=== PATIENT | female | born 1960 | race Caucasian/White ===

== ENCOUNTER → 2017-01-25 | Outpatient (CLI) | payer MEDICARE ==
[~2017-01-25] MED LIST: 1-ME1LIQ PO; ALPR1TAB3 PO; AMLO10TA2 PO; ASPI-110 PO; ATEN-102 PO; ATEN50TA PO; CALC600T25 PO; COMBAER INH; DOXY100T PO; FLEX10TA PO; FLUO1TAB17 PO; FORM20NE INH; HYDR-3533 PO; IPRA17I INH; IPRASOL INH; LAMO100T PO; MONT10TA4 PO; OXYGENTANK NAS.CANULA; PANT40TA3 PO; PRED10 PO; PRIM0.224 INH; QUET50XR PO; ROSU1TAB6 PO; TRIH2 PO; VENTAER INH; XANA1TAB6 PO
[2017-01-25 13:17] LABS: BLOOD GAS BASE EXCESS 2.2 mmol/L (-2-2); BLOOD GAS CARBOXYHEMOGLOBIN 4.8 % (0-4); BLOOD GAS HCO3 26 mmol/L (22-26); BLOOD GAS METHEMOGLOBIN 0.9 % (0-2); BLOOD GAS O2 HGB SATURATION 91 % (90-100); BLOOD GAS OXYGEN CONTENT 17.6 Vol % (12.0-20.0); BLOOD GAS PCO2 41 mmHg (38-42); BLOOD GAS PO2 85 mmHg (61-120); BLOOD GAS TOTAL HGB 13.7 G/DL (12.0-16.0); TEMP CORR TO 98.6
[2017-01-25 13:18] LABS: CRITICAL VALUE NO; DRAW SITE RR1; FIO2 21 %; NUMBER OF ARTERIAL PUNCTURES 1; STAT NO; ULNAR PULSE PRESENT
--- NOTE | 2017-02-11 10:33 | RSPPFT ---
DATE OF PROCEDURE: 01/25/17 COMMENTS: Spirometry with FVC of 1.4 predicted 3.6, FEV1 of 0.6 predicted 2.7, FEV1/FVC ratio at 44% predicted 74%. Post-bronchodilator FVC increases to 1.8 and FEV1 to 0.7. IMPRESSION: On the basis of the above, patient's flow volume loop is not satisfactory and she was unable to complete the DLCO and lung volumes. Patient has a severe restrictive lung defect with responsiveness to acutely inhaled bronchodilator.
== END ==
LOC: HRSP 11:23
PROVIDERS: ATTEND Internal Medicine Pulmonary Disease
DX: J44.9 Chronic obstructive pulmonary disease, unspecified (principal)
CPT/HCPCS: 36600; 82805

== ENCOUNTER 2017-03-07 16:02 | Inpatient (IN) | payer MEDICARE ==
[~2017-03-07] VITALS: Ht 172.7 cm; Wt 61.5 kg
[2017-03-14] MEDS ORDERED: CALC600T25 PO (13:48)
[2017-03-14] MEDS ORDERED: ATEN50TA PO (13:48)
[2017-03-14] MEDS ORDERED: QUET50XR PO (13:48)
[2017-03-14] MEDS ORDERED: ALPR1TAB3 PO (13:48)
[2017-03-14] MEDS ORDERED: ROSU1TAB6 PO (13:48)
[2017-03-14] MEDS ORDERED: MONT10TA4 PO (13:48)
[2017-03-14] MEDS ORDERED: ASPI-110 PO (13:48)
[2017-03-14] MEDS ORDERED: IPRA17I INH (13:48)
[2017-03-14] MEDS ORDERED: IPRASOL INH (13:48)
[2017-03-14] MEDS ORDERED: FORM20NE INH (13:48)
[2017-03-14] MEDS ORDERED: FLUO1TAB17 PO (13:48)
[2017-03-14] MEDS ORDERED: LAMO100T PO (13:48)
[2017-03-14] MEDS ORDERED: VENTAER INH (13:48)
[2017-03-14] MEDS ORDERED: TRIH2 PO (13:48)
[2017-03-14] MEDS ORDERED: AMLO10TA2 PO (13:48)
[2017-03-14] MEDS ORDERED: DOXY100T PO (13:49)
[2017-03-14] MEDS ORDERED: PRED10 PO (13:53)
[2017-03-14] MEDS ORDERED: PANT40TA3 PO (14:06)
[2017-03-18 05:40] VITALS: BP 142/82; PULSE 70; RESP 20; TEMP 98; O2SAT 97
[2017-03-18] MEDS ORDERED: POVIDONE IODINE 5% (ANTISEPSIS KIT) 4 APPLICATIONS EACH NARE PRN (06:00)
[2017-03-18] MEDS ORDERED: SODIUM CHLORID 0.9% 500 ML IV PRN (06:00)
[2017-03-18] MEDS ORDERED: CLINDAMYCIN 900/NS 100 ML IV SCH ×2 (06:00)
[2017-03-18] MEDS ORDERED: CHLORHEXIDINE GLUCONATE 2 % 1 PACK (2 CLOTHS) TOPICAL PRN (06:00)
[2017-03-18] MEDS ORDERED: LACTATED RINGER'S 1000 ML IV PRN (06:00)
[2017-03-18] MEDS ORDERED: METOPROLOL TARTRATE 25 MG TAB PO PRN (06:00)
[2017-03-18] MEDS ORDERED: INSULIN HUMAN REGULAR 1,000 UNITS/10 ML VIAL SQ PRN (06:00)
[2017-03-18] MEDS ORDERED: SODIUM CHLORIDE 0.9% INJ 100 ML ONE (06:13)
[2017-03-18] MEDS ORDERED: ACETAMINOPHEN 1000 MG/100 ML VIAL IV ONE (06:44)
[2017-03-18] MEDS ORDERED: SUGAMMADEX SODIUM 200 MG/2 ML VIAL IV PUSH ONE ×2 (06:44)
[2017-03-18] MEDS ORDERED: ARTIFICIAL TEARS OPTH OINT 3.5 APPLIC/3.5 GM TUBO ONE (06:44)
[2017-03-18 06:48] LABS: INTERNATIONAL NORMALIZED RATIO 0.9 RATIO
[2017-03-18] MEDS ORDERED: FAMOTIDINE 20 MG/2 ML VIAL ONE (07:09)
[2017-03-18] MEDS ORDERED: MIDAZOLAM HCL 2 MG/2 ML VIAL ONE (07:09)
[2017-03-18] MEDS ORDERED: DEXAMETHASONE SOD PHOS 4 MG/ML VIAL ONE (07:10)
[2017-03-18] MEDS ORDERED: NORMOSOL R INJ 1,000 ML IV ONE (12:00)
[2017-03-18] MEDS ORDERED: PHENYLEPH/NS 1000 MCG/10 ML SYR IV ONE (12:00)
[2017-03-18] MEDS ORDERED: PHENYLEPHRINE HCL 10 MG/ML VIAL IV ONE (12:00)
[2017-03-18] MEDS: ACETAMINOPHEN 1000 MG/100 ML VIAL IV SCH ×3 (12:00→23:02)
[2017-03-18] MEDS ORDERED: LACTATED RINGER'S 1000 ML INJ 1,000 ML IV ONE (12:00)
[2017-03-18] MEDS ORDERED: PROPOFOL 200 MG/20 ML AMP IV ONE (12:00)
[2017-03-18] MEDS ORDERED: ONDANSETRON HCL 4 MG/2 ML VIAL IV PUSH ONE (12:00)
[2017-03-18] MEDS: SODIUM CHLOR 0.9% 1000 ML INJ 1,000 ML IV SCH ×2 (12:15→20:59)
[2017-03-18] MEDS ORDERED: traMADol HCL 50 MG TAB PO PRN ×2 (12:15)
[2017-03-18] MEDS ORDERED: fentaNYL CITRATE 250 MCG/5 ML AMP ONE (12:56)
[2017-03-18] MEDS: PANTOPRAZOLE SODIUM 40 MG VIAL IV PUSH SCH (13:00)
[2017-03-18] MEDS ORDERED: DO NOT ADM ANY ANTICOAGULANT DRUGS PRN (13:00)
[2017-03-18 13:13] LABS: AUTOMATED NEUTROPHIL # 8.9 TH/MM3 (1.8-7.7); BASOPHIL % 0.3 % (0.0-2.0); HEMATOCRIT 39.3 % (35.0-46.0); HEMO FLAGS DIFF FINAL; LYMPH % 4.7 % (9.0-44.0); LYMPHOCYTE # 0.4 TH/MM3 (1.0-4.8); MEAN CELL VOLUME 88.5 FL (80.0-100.0); MEAN CORPUSCULAR HEMOGLOBIN 28.3 PG (27.0-34.0); MONO % 1.6 % (0.0-8.0); NEUT % 93.4 % (16.0-70.0); PLATELET COUNT 213 TH/MM3 (150-450); RED BLOOD COUNT 4.44 MIL/MM3 (4.00-5.30); WHITE BLOOD COUNT 9.5 TH/MM3 (4.0-11.0)
[2017-03-18] MEDS ORDERED: *morphine SULFATE 8 MG/ML PERIprocedure ONLY ONE (13:30)
[2017-03-18 13:31] LABS: BICARBONATE 24.7 MEQ/L (21.0-32.0); POTASSIUM 3.7 MEQ/L (3.5-5.1)
[2017-03-18] MEDS: CLINDAMYCIN INJ 900 MG in SODIUM CHLORIDE 0.9% INJ 100 ML IV SCH ×2 (13:39→21:00)
[2017-03-18] MEDS: MORPHINE SULFATE 8 MG/ML INJ IV PUSH PRN ×2 (17:16→21:00)
[2017-03-18 18:00] VITALS: BP 106/63; PULSE 89; RESP 14; TEMP 95.7; O2SAT 91
[2017-03-18 20:00] VITALS: BP 127/89; PULSE 93; RESP 19; TEMP 96; O2SAT 98
[2017-03-18] MEDS: DOCUSATE SODIUM 100 MG CAP PO SCH (20:42)
--- NOTE | 2017-03-18 22:41 | EKG ---
Date Performed: 03/18/2017 Time Performed: 06:28:59 PTAGE: 56 years EKG: Sinus rhythm NORMAL ECG NO PREVIOUS TRACING Compared to the previous tracing sinus bradycardia is no longer prese nt DOCTOR: Ross Aguilar Interpretating Date/Time 03/18/2017 22:40:30
[2017-03-19] VITALS: BP 106/57; PULSE 63; RESP 19; TEMP 96; O2SAT 92
[2017-03-19] MEDS: CLINDAMYCIN INJ 900 MG in SODIUM CHLORIDE 0.9% INJ 100 ML IV SCH ×3 (03:46→21:16)
[2017-03-19 04:00] VITALS: BP 97/60; PULSE 78; RESP 19; TEMP 98.3; O2SAT 93
[2017-03-19] MEDS: MORPHINE SULFATE 8 MG/ML INJ IV PUSH PRN ×3 (06:06→21:21)
[2017-03-19] MEDS: ACETAMINOPHEN 1000 MG/100 ML VIAL IV SCH ×4 (06:06→23:19)
[2017-03-19] MEDS: ONDANSETRON HCL 4 MG/2 ML VIAL IV PUSH PRN ×3 (06:12→21:20)
[2017-03-19 06:29] LABS: BICARBONATE 30.7 MEQ/L (21.0-32.0); POTASSIUM 4.6 MEQ/L (3.5-5.1)
[2017-03-19 08:00] VITALS: BP 121/57; PULSE 78; RESP 17; TEMP 97.2; O2SAT 92
[2017-03-19] MEDS: SODIUM CHLOR 0.9% 1000 ML INJ 1,000 ML IV SCH ×3 (08:15→23:19)
[2017-03-19] MEDS: DOCUSATE SODIUM 100 MG CAP PO SCH ×2 (08:57→21:15)
--- NOTE | 2017-03-19 11:04 | MP ---
cc: SARI FIGUEROA MD DATE OF SURGERY: 03/18/2017 PREOPERATIVE DIAGNOSIS Right upper tract urothelial cell carcinoma. POSTOPERATIVE DIAGNOSIS Right upper tract urothelial cell carcinoma. PROCEDURE PERFORMED Robotic-assisted laparoscopic right nephroureterectomy with bladder cuff. SURGEON Hernando ANESTHESIA General. COMPLICATIONS None. PREOPERATIVE ANTIBIOTICS Clindamycin 600 mg IV. DRAINS 1. 11-Vietnamese LORETTA drain to bulb suction. 2. 20-Vietnamese three-way Grove catheter. ESTIMATED BLOOD LOSS Less than 50 mL. FLUIDS Two liters crystalloids. SPECIMENS Right kidney and ureter for permanent. DISPOSITION Stable to Recovery. INDICATIONS The patient is a 56-year-old female who was found to have a right upper pole renal mass. The patient underwent cystoscopy, ureteroscopy and biopsy by Dr. Grubbs, and was confirmed be low grade TCC. Treatment options were discussed including observation versus endo ablation versus an open nephroureterectomy versus laparoscopic nephroureterectomy. The advantages, disadvantages and potential side effects of each one were discussed including the need for surveillance of her bladder in the future as well as risk of renal failure and dialysis. She elected to proceed with robotic-assisted laparoscopic right nephroureterectomy. After the risks, benefits and alternatives were explained the patient elected to proceed and informed consent was obtained. DETAILS OF PROCEDURE The patient was properly identified, brought back to the operative room and laid supine on the operating table. A proper timeout was performed under the direction of the anesthesiology. The patient was intubated and induced under a general aesthetic. Preoperative antibiotics in the form of clindamycin 600 mg IV were given within one hour start of the procedure. The patient was then placed in a left lateral decubitus position with the right side up. All pressure points were padded. She was then prepped and draped in normal sterile surgical fashion. A stab incision was made just superior and lateral to her umbilicus. A Veress needle was then used to gain entrance into the abdominal cavity. Pneumoperitoneum was then achieved. Under direct visualization I then placed a 12 mm robotic camera port. The abdominal cavity was inspected. There was no evidence of any intra-abdominal injury. The remaining ports were then placed under direct visualization including two 8 mm robotic working ports which were triangulated off of the camera port. A 5 mm port was used for liver retraction superior to the umbilicus as well as a 12 mm coding assistant port inferior to the umbilicus and medial. The robot was then brought into position. On first inspection the patient had an extremely long appendix that was draped to the anterior portion of the kidney looping around towards the liver. This was carefully dissected off and it remained intact. The remaining colon was then reflected taking down the white line of Toldt which opened up the retroperitoneum. The duodenum was then kocherized which then exposed the inferior vena cava. The gonadal vein and ureter were easily identified as the patient was quite thin on the inside. At this time I then developed a plane between the inferior vena cava and the gonadal vein and ureter. I then retracted the kidney anteriorly towards the abdominal wall. This easily exposed the psoas muscle. I then followed the psoas muscle up to where the gonadal vein attached to the IVC. This was taken with a robotic vessel sealer. The upper pole was then freed and the hilum was isolated. I was able to easily get around the renal vein and artery. Both were easily visualized. They were taken together with an endovascular GI stapler. The upper pole was carefully dissected off the liver which had been previously retracted by a liver retractor which was placed at the beginning of the case. Using a broad vessel sealer I then marched across the upper pole attachments to free the kidney. The lateral pole attachments were then freed as well. At this time I then focused on the ureter. The ureter was then carefully dissected off caudally and following it down to the pelvis. Both blunt dissection and electrocautery were used. It was carefully dissected off the iliacs and marched down close to the bladder. The bladder was then gently filled which easily exposed the entrance of the ureter to the bladder. I carefully dissected off the muscle fibers of the bladder from the ureter and to get to the intramural ureter. I dissected the right ureter to the ureteral orifice. I excised a bladder cuff and was closed with hemolock clips. . There was minimal bleeding at this time. One gram of Gonzalez was then placed in the pelvis. The bladder appeared to be a watertight closure. At this time the kidney and ureter were then placed into an EndoCatch bag. The upper pole was inspected. The pressure was then dropped down to 7 mmHg. The remaining Gonzalez was then applied to the renal hilar bed and adrenal bed. A LORETTA drain was then placed through the left robotic port and secured with 3-0 nylon. The kidney was then extracted through the right upper quadrant incision. This was closed with 1-0 PDS. All remaining skin incisions were then closed with Vicryl and Monocryl. Hemostasis was excellent. Sponge and needle count was correct at the end of the case. This concluded the procedure. The patient was extubated and sent to Recovery in stable condition. She will be transferred to the floor for routine postoperative care. Sari Figueroa MD EMKaylin/BT /12:30 PM /10:37 AM SUE
[2017-03-19 12:00] VITALS: BP 114/64; PULSE 80; RESP 20; TEMP 99.6; O2SAT 94
[2017-03-19] MEDS ORDERED: diphenhydrAMINE HCL 50 MG/ML VIAL IV PRN (12:00)
[2017-03-19] MEDS: PANTOPRAZOLE SODIUM 40 MG VIAL IV PUSH SCH (12:07)
[2017-03-19] MEDS ORDERED: RESP: ALBUTEROL 2.5 MG/IPRATROPIUM 0.5 MG NEB (PRN) INH (13:00)
[2017-03-19] MEDS: TRIHEXYPHENIDYL HCL 2 MG TAB PO SCH ×2 (13:00→21:15)
[2017-03-19] MEDS ORDERED: ALBUTEROL SULFATE 90 MCG/ACT HFA 8 GM INHALER INH PRN (13:00)
[2017-03-19] MEDS ORDERED: NON-FORMULARY DRUG (Formoterol Neb (Perforomist Neb) 1 NEBULE) INH SCH (13:00)
[2017-03-19] MEDS: lamoTRIgine 25 MG TAB PO SCH ×2 (13:00→21:15)
--- NOTE | 2017-03-19 13:11 | HHI.PR ---
Subjective Patient symptoms today developed itching, some shortness of breath after taking Tramadol this morning. IV Benadryl was given which helped. C/o RUQ abdominal pain at incision. Mild nausea. Denies flatus, CP, Fevers. Objective Vital Signs Vital Signs Date Time Temp Pulse Resp B/P Pulse Ox O2 Delivery O2 Flow Rate FiO2 03/19/17 12:00 99.6 80 20 114/64 94 03/19/17 08:00 97.2 78 17 121/57 92 03/19/17 04:00 98.3 78 19 97/60 93 03/19/17 00:00 96.0 63 19 106/57 92 03/18/17 21:05 16 03/18/17 20:00 96.0 93 19 127/89 98 03/18/17 18:00 95.7 89 14 106/63 91 03/18/17 15:55 97.6 77 15 120/72 94 Nasal Cannula 3 03/18/17 15:30 78 15 115/64 93 Nasal Cannula 3 03/18/17 15:00 80 15 112/63 92 Nasal Cannula 3 03/18/17 14:45 79 14 103/57 93 Nasal Cannula 3 03/18/17 14:30 80 16 98/57 92 Nasal Cannula 3 03/18/17 14:15 79 17 92/53 93 Nasal Cannula 3 03/18/17 14:00 97.6 84 15 90/52 94 Nasal Cannula 4 03/18/17 13:30 81 14 104/57 94 Nasal Cannula 4 03/18/17 13:15 83 18 96/51 96 Nasal Cannula 4 Intake & Output 03/19/17 03/19/17 07:00 19:00 Intake Total 965 ml Output Total 1980 ml Balance -1015 ml Intake Oral 0 ml IV Total 965 ml Output Urine Total 1900 ml Drainage Total 80 ml # Bowel Movements 0 Result Diagram: 03/18/17 1215 03/19/17 4641 Objective Remarks NAD. Drowsy, answers questions appropriately. A/O x 3 CTAB RRR abd soft, distended, appropriately tender. Iinc c/d/i. No peritoneal signs. Grove clear, yellow urine Ext NT. No c/c/e. EPC cuffs on. Medications and IVs Current Medications Medications (Trade) Dose Ordered Sig/Breann Route Start Time Stop Time Status Last Admin (Colace) 100 mg BID PO 03/18/17 21:00 03/19/17 08:57 Acetaminophen 1000 mg 1,000 mg Q6H IV 03/18/17 12:00 03/19/17 06:06 (Cleocin Inj/NS Inj) 106 ml @ 212 mls/hr Q8H IV 03/18/17 14:00 03/19/17 03:46 (Morphine Inj) 5 mg Q4H PRN IV PUSH 03/18/17 12:15 03/19/17 06:06 (Zofran Inj) 4 mg Q6HR PRN IV PUSH 03/18/17 12:15 03/19/17 12:07 Pantoprazole Sodium 40 mg 40 mg Q24H IV PUSH 03/18/17 13:00 03/19/17 12:07 (NS 1000 ml Inj) 1,000 ml @ 100 mls/hr Q10H IV 03/18/17 12:15 03/19/17 08:15 (Benadryl Inj) 50 mg Q6H PRN IV 03/19/17 12:00 03/19/17 12:04 (Proair Hfa Inh) 3 puff Q4H PRN INH 03/19/17 13:00 (Xanax) 1 mg TID PO 03/19/17 13:00 (Norvasc) 10 mg DAILY PO 03/20/17 09:00 (Tenormin) 50 mg DAILY PO 03/20/17 09:00 (LaMICtal) 50 mg BID PO 03/19/17 13:00 (Singulair) 10 mg HS PO 03/19/17 21:00 (Deltasone) 10 mg DAILY PO 03/20/17 09:00 UNV (Artane) 2 mg BID PO 03/19/17 13:00 UNV (Ecotrin Ec) 81 mg DAILY PO 03/20/17 09:00 (Oscal) 500 mg DAILY PO 03/20/17 09:00 (PROzac) 40 mg DAILY PO 03/19/17 13:15 Non-Formulary Medication 1 nebule Q12HR INH 03/19/17 13:00 UNV Non-Formulary Medication 50 mg HS PO 03/19/17 21:00 UNV Non-Formulary Medication 10 mg HS PO 03/19/17 21:00 UNV Assessment and Plan Assessment and Plan POD #1 s/p Right Robotic Nephroureterectomy -adjust pain medications -Restart home medications -Hemoglobin stable -Good UOP -clear liquid diet -Ambulate -DVT/GI prophylaxis. Augustin Villagomez MD March 19, 2017 13:11
[2017-03-19] MEDS ORDERED: ALBUTEROL SULFATE 90 MCG/ACT HFA 18 GM INHALER INH PRN (13:35)
[2017-03-19] MEDS: ALPRAZolam 1 MG TAB PO SCH ×2 (13:54→17:56)
[2017-03-19] MEDS: FLUoxetine HCL 20 MG CAP PO SCH (13:55)
[2017-03-19 16:00] VITALS: BP 103/62; PULSE 93; RESP 20; TEMP 99.3; O2SAT 92
[2017-03-19 20:00] VITALS: BP 119/72; PULSE 72; RESP 18; TEMP 96; O2SAT 91
[2017-03-19] MEDS ORDERED: [UNRECOGNIZED DRUG - OTHER] INH SCH (21:00)
[2017-03-19] MEDS: ATORVASTATIN 20 MG TAB PO SCH (21:15)
[2017-03-19] MEDS: MONTELUKAST SODIUM 10 MG TAB PO SCH (21:16)
[2017-03-19] MEDS: QUEtiapine FUMARATE 25 MG TAB PO SCH (21:16)
[2017-03-20] VITALS (14 sets, daily range): BP systolic 98–127; BP diastolic 57–69; PULSE 58–86; RESP 12–30; TEMP 98.3–98.9; O2SAT 38–99
[2017-03-20] MEDS: CLINDAMYCIN INJ 900 MG in SODIUM CHLORIDE 0.9% INJ 100 ML IV SCH ×3 (05:11→21:37)
[2017-03-20] MEDS: ACETAMINOPHEN 1000 MG/100 ML VIAL IV SCH ×3 (05:11→18:00)
[2017-03-20] MEDS: TRIHEXYPHENIDYL HCL 2 MG TAB PO SCH ×2 (09:24→20:29)
[2017-03-20] MEDS: lamoTRIgine 25 MG TAB PO SCH ×2 (09:24→20:29)
[2017-03-20] MEDS: ATENOLOL 50 MG TAB PO SCH (09:24)
[2017-03-20] MEDS: CALCIUM CARBONATE 1.25 GM (CA 500 MG) TAB PO SCH (09:24)
[2017-03-20] MEDS: ASPIRIN EC 81 MG TABEC PO SCH (09:24)
[2017-03-20] MEDS: FLUoxetine HCL 20 MG CAP PO SCH (09:25)
[2017-03-20] MEDS: predniSONE 10 MG TAB PO SCH (09:25)
[2017-03-20] MEDS: DOCUSATE SODIUM 100 MG CAP PO SCH ×2 (09:25→20:28)
[2017-03-20] MEDS: ALPRAZolam 1 MG TAB PO SCH ×3 (09:25→18:00)
[2017-03-20] MEDS: MORPHINE SULFATE 8 MG/ML INJ IV PUSH PRN (09:45)
[2017-03-20] MEDS: ONDANSETRON HCL 4 MG/2 ML VIAL IV PUSH PRN (09:45)
[2017-03-20] MEDS: PANTOPRAZOLE SODIUM 40 MG VIAL IV PUSH SCH (13:12)
[2017-03-20 13:22] LABS: BLOOD GAS BASE EXCESS 3.1 mmol/L (-2-2); BLOOD GAS CARBOXYHEMOGLOBIN 1.3 % (0-4); BLOOD GAS HCO3 29 mmol/L (22-26); BLOOD GAS METHEMOGLOBIN 0.8 % (0-2); BLOOD GAS O2 HGB SATURATION 89 % (90-100); BLOOD GAS OXYGEN CONTENT 16.3 Vol % (12.0-20.0); BLOOD GAS PCO2 62 mmHg (38-42); BLOOD GAS PO2 63 mmHg (61-120); BLOOD GAS TOTAL HGB 13.1 G/DL (12.0-16.0); TEMP CORR TO 98.6
[2017-03-20 13:23] LABS: CRITICAL VALUE YES; DRAW SITE RT RADIAL; FIO2 50 %; LITER FLOW 6 L/M; NUMBER OF ARTERIAL PUNCTURES 1; OXYGEN DEVICE Venti Mask; STAT YES; ULNAR PULSE PRESENT
[2017-03-20 14:16] LABS: AUTOMATED NEUTROPHIL # 7.9 TH/MM3 (1.8-7.7); BASOPHIL % 0.2 % (0.0-2.0); EOSINOPHIL % 0.1 % (0.0-4.0); HEMATOCRIT 36.1 % (35.0-46.0); HEMO FLAGS DIFF FINAL; LYMPH % 4.8 % (9.0-44.0); LYMPHOCYTE # 0.4 TH/MM3 (1.0-4.8); MEAN CELL VOLUME 88.2 FL (80.0-100.0); MEAN CORPUSCULAR HEMOGLOBIN 28.8 PG (27.0-34.0); MEAN CORPUSCULAR HGB CONC 32.6 % (32.0-36.0); MONO % 2.9 % (0.0-8.0); PLATELET COUNT 164 TH/MM3 (150-450); RED BLOOD COUNT 4.09 MIL/MM3 (4.00-5.30); RED CELL DISTRIBUTION WIDTH 14.4 % (11.6-17.2); WHITE BLOOD COUNT 8.5 TH/MM3 (4.0-11.0)
[2017-03-20 14:27] LABS: ANION GAP 6 MEQ/L (5-15); BLOOD UREA NITROGEN 8 MG/DL (7-18); CHLORIDE 98 MEQ/L (98-107); GLOMERULAR FILTRATION RATE 66 ML/MIN (>89); POTASSIUM 3.9 MEQ/L (3.5-5.1); SODIUM (NA) 135 MEQ/L (136-145)
[2017-03-20 14:31] LABS: CREATINE KINASE 485 U/L (26-192)
[2017-03-20] MEDS ORDERED: IODIXANOL 320 MG/ML 50 ML VIAL (for Rad CT) IV ONE (14:40)
[2017-03-20 14:42] LABS: CKMB 1.7 NG/ML (0.5-3.6)
[2017-03-20] MEDS ORDERED: NALOXONE HCL 0.4 MG/ML AMP ONE (15:35)
--- NOTE | 2017-03-20 15:51 | RADRPT ---
EXAM DATE/TIME: 03/20/2017 14:39 [facility] COMPARISON: No previous studies available for comparison. INDICATIONS : Evaluate for P.E. IV CONTRAST: 50 cc Visipaque (iodixanol) IV RADIATION DOSE: 20.91 CTDIvol (mGy) MEDICAL HISTORY : Cardiovascular disease. Renal cancer, Stroke, SURGICAL HISTORY : Kidney removed. ENCOUNTER: Initial ACUITY: 1 day PAIN SCALE: Non-responsive LOCATION: Bilateral chest TECHNIQUE: Volumetric scanning of the chest was performed using a pulmonary embolism protocol MIP images were re constructed. Using automated exposure control and adjustment of the mA and/or kV according to patien t size, radiation dose was kept as low as reasonably achievable to obtain optimal diagnostic quality images. FINDINGS: The examination is of good diagnostic quality. The pulmonary arteries are widely patent. The heart is normal in size. There is no significant hilar or mediastinal adenopathy. No pericardial effusion is seen. The examination demonstrates areas of infiltrate and atelectasis involving both lower lobes. There ar e small bilateral effusions. The examination also demonstrates a moderate amount of diffuse subcutaneous emphysema. There is no pn eumothorax identified. The visualized bony structures are grossly intact. CONCLUSION: 1. No pulmonary embolus identified. 2. Sizable areas of atelectasis in both lung bases with small bilateral effusions. 3. There is an area of honeycombing and fibrosis in the posterior aspect of the right upper lobe as w ell. 4. Extensive subcutaneous emphysema without evidence of pneumothorax. Izaiah Manley MD on March 20, 2017 at 15:43 Board Certified Radiologist. This report was verified electronically.
[2017-03-20] MEDS ORDERED: methylPREDNISolone SOD SUCC 125 MG/2 ML VIAL IV PUSH ONE (16:15)
[2017-03-20] MEDS: RESP: ALBUTEROL 2.5 MG/IPRATROPIUM 0.5 MG NEB (SCH) NEB ×3 (16:15→23:48)
--- NOTE | 2017-03-20 16:32 | RADRPT ---
EXAM DATE/TIME: 03/20/2017 15:50 [facility] COMPARISON: CT PULMONARY ANGIOGRAM, March 20, 2017, 14:39. INDICATIONS : Short of breath. MEDICAL HISTORY : Cardiovascular disease. Stroke. Renal cancer. SURGICAL HISTORY : None. ENCOUNTER: Initial ACUITY: 1 day PAIN SCORE: 4/10 LOCATION: Right lower chest FINDINGS: Diffuse subcutaneous emphysema is noted within the chest wall bilaterally as well as within the lower neck. No pneumothorax is noted. Interstitial fibrosis and emphysema is stable. Bibasilar patchine ss is noted consistent with possible pneumonia. Small bilateral pleural effusions are stable. The h eart is stable. CONCLUSION: 1. Bibasilar patchiness consistent with possible pneumonia. 2. Underlying interstitial fibrosis and emphysematous changes. 3. Diffuse subcutaneous emphysema bilaterally. 4. Small bilateral pleural effusions. Quentin Hawkins MD on March 20, 2017 at 16:23 Board Certified Radiologist. This report was verified electronically.
--- NOTE | 2017-03-20 16:48 | HHI.PR ---
Subjective Patient symptoms today Saw earlier today. Developed worsening SOB, altered mental status. O2 sat down to 38. Placed on mask at 6L. O2 sat improved. Having right UPQ pain. Objective Vital Signs Vital Signs Date Time Temp Pulse Resp B/P Pulse Ox O2 Delivery O2 Flow Rate FiO2 03/20/17 15:47 89 Non-Rebreather 100 03/20/17 15:20 95 50 03/20/17 12:28 70 16 70 03/20/17 12:00 98.9 72 14 98/57 38 03/20/17 11:52 92 Venturi Mask 6.00 50 03/20/17 08:00 98.5 80 16 116/68 94 03/20/17 00:00 98.7 86 18 121/65 91 03/19/17 20:00 96.0 72 18 119/72 91 Intake & Output 03/20/17 03/20/17 07:00 19:00 Intake Total 1240 ml 0 ml Output Total 1450 ml 20 ml Balance -210 ml -20 ml Intake Oral 480 ml 0 ml IV Total 760 ml Output Urine Total 1400 ml Drainage Total 50 ml 20 ml # Bowel Movements 0 Result Diagram: 03/20/17 1347 03/20/17 1347 Imaging Last [address] Angiography 03/20/17 0000 Signed Impressions: Service Date/Time: Monday, March 20, 2017 14:39 - CONCLUSION: 1. No pulmonary embolus identified. 2. Sizable areas of atelectasis in both lung bases with small bilateral effusions. 3. There is an area of honeycombing and fibrosis in the posterior aspect of the right upper lobe as well. 4. Extensive subcutaneous emphysema without evidence of pneumothorax. Izaiah Manley MD Objective Remarks NAD. confused, disoriented. CTAB RRR abd soft, distended, appropriately tender. Iinc c/d/i. No peritoneal signs. Grove clear, yellow urine Ext NT. No c/c/e. EPC cuffs on. Medications and IVs Current Medications Medications (Trade) Dose Ordered Sig/Breann Route Start Time Stop Time Status Last Admin (Colace) 100 mg BID PO 03/18/17 21:00 03/20/17 09:25 Acetaminophen 1000 mg 1,000 mg Q6H IV 03/18/17 12:00 03/20/17 13:12 (Cleocin Inj/NS Inj) 106 ml @ 212 mls/hr Q8H IV 03/18/17 14:00 03/20/17 13:12 (Zofran Inj) 4 mg Q6HR PRN IV PUSH 03/18/17 12:15 03/20/17 09:45 Pantoprazole Sodium 40 mg 40 mg Q24H IV PUSH 03/18/17 13:00 03/20/17 13:12 (NS 1000 ml Inj) 1,000 ml @ 100 mls/hr Q10H IV 03/18/17 12:15 03/19/17 23:19 (Benadryl Inj) 50 mg Q6H PRN IV 03/19/17 12:00 03/19/17 12:04 (Xanax) 1 mg TID PO 03/19/17 13:00 03/20/17 09:25 (Norvasc) 10 mg DAILY PO 03/20/17 09:00 03/20/17 09:24 (Tenormin) 50 mg DAILY PO 03/20/17 09:00 03/20/17 09:24 (LaMICtal) 50 mg BID PO 03/19/17 13:00 03/20/17 09:24 (Singulair) 10 mg HS PO 03/19/17 21:00 03/19/17 21:16 (Deltasone) 10 mg DAILY PO 03/20/17 09:00 03/20/17 09:25 (Artane) 2 mg BID PO 03/19/17 13:00 03/20/17 09:24 (Ecotrin Ec) 81 mg DAILY PO 03/20/17 09:00 03/20/17 09:24 (Oscal) 500 mg DAILY PO 03/20/17 09:00 03/20/17 09:24 (PROzac) 40 mg DAILY PO 03/19/17 13:15 03/20/17 09:25 (SEROquel) 50 mg HS PO 03/19/17 21:00 03/19/17 21:16 (Lipitor) 20 mg HS PO 03/19/17 21:00 03/19/17 21:15 (Ventolin Hfa Inh) 3 puff Q4H PRN INH 03/19/17 13:35 Patient Own Medication PT OWN MED: PERFOROM... Q12H INH 03/19/17 21:00 Hold (SoluMEDROL INJ) 40 mg Q12HR IV PUSH 03/20/17 21:00 Assessment and Plan Assessment and Plan POD #2 s/p Right Robotic Nephroureterectomy -CTA Chest STAT r/o PE -ABG, CBC, BMP, Cardiac Enzymes, EKG -D/C morphine -Transfer to ICU. Consult [employer]. -Continue LORETTA [place] drain. Augustin Villagomez MD March 20, 2017 16:48
[2017-03-20] MEDS: SODIUM CHLOR 0.9% 1000 ML INJ 1,000 ML IV SCH (17:03)
--- NOTE | 2017-03-20 19:55 | PD.CONS ---
[facility] Service Critical Care Medicine Consult Requested By Primary Care Physician Kris Olson History of Present Illness 56-year-old female with a medical history significant for significant COPD, right upper tract urothelial cell carcinoma who underwent robot-assisted right nephroureterectomy with bladder cuff resection under general anesthesia on [address] Villagomez, tolerated procedure well was subsequently extubated and transferred to the floor. She has been on nasal cannula. Today patient became progressively more lethargic. She had been receiving morphine for pain control at her surgical site. She also dropped her O2 sats so a CT pulmonary angiogram was ordered and patient was transferred to [facility] with the critical care consult requested for encephalopathy/respiratory failure. Patient was placed on BiPAP following arrival to the ICU as an ABG reflected acute respiratory acidosis. I evaluated the patient shortly following arrival. I ordered Narcan while I was in transit which was administered just prior to my arrival and with immediate improvement in her neurologic status. When I evaluated the patient she was awake and alert following commands moving all 4 extremities. She was complaining of significant thirst. BiPAP was he can often she was placed on a nonrebreather facemask with that she was maintaining her O2 sats. CTA chest was negative for pulmonary embolism however revealed significant emphysematous changes with blebs and extensive subcutaneous air extending from right to left side across anterior chest with more extensive surgical emphysema on the right side with no evidence of pneumothorax. Patient denied any chest pain or lightheadedness. Denied any chills. She did have some pain over her surgical site. She has been a long-standing smoker. History was obtained by reviewing records and discussion with nursing staff. Review of Systems ROS As per history of present illness Past Family Social History Allergies: Coded Allergies: Penicillin (Verified Allergy, Severe, THROAT CLOSING, 03/18/17) Tetanus Toxoid (Verified Allergy, Severe, SWEELING AT SITE OF INJECTION, ARM VERY RED AND HOT, 03/18/17) Tramadol (Verified Allergy, Unknown, Rash, 03/19/17) rash , difficulty breathing Codeine (Verified Adverse Reaction, Intermediate, NAUSEA, 03/18/17) Buspar (Verified Adverse Reaction, Mild, DIDN'T HELP WITH SMOKING CESSATION, 03/18/17) Oxycodone (Verified Adverse Reaction, Unknown, DONESN'T REMEMBER, 03/14/17) Past Medical History Parkinson's disease Anxiety/ depression Claustrophobia Hypertension hyperlipidemia COPD cardiac murmur questionable TIA Past Surgical History Tubal ligation Right hand surgery EGD Reported Medications Current Medications Medications (Trade) Dose Ordered Sig/Breann Route Start Time Stop Time Status Last Admin (Colace) 100 mg BID PO 03/18/17 21:00 03/20/17 09:25 Acetaminophen 1000 mg 1,000 mg Q6H IV 03/18/17 12:00 03/20/17 13:12 (Cleocin Inj/NS Inj) 106 ml @ 212 mls/hr Q8H IV 03/18/17 14:00 03/20/17 13:12 (Zofran Inj) 4 mg Q6HR PRN IV PUSH 03/18/17 12:15 03/20/17 09:45 Pantoprazole Sodium 40 mg 40 mg Q24H IV PUSH 03/18/17 13:00 03/20/17 13:12 (NS 1000 ml Inj) 1,000 ml @ 100 mls/hr Q10H IV 03/18/17 12:15 03/20/17 17:03 (Benadryl Inj) 50 mg Q6H PRN IV 03/19/17 12:00 03/19/17 12:04 (Xanax) 1 mg TID PO 03/19/17 13:00 03/20/17 09:25 (Norvasc) 10 mg DAILY PO 03/20/17 09:00 03/20/17 09:24 (Tenormin) 50 mg DAILY PO 03/20/17 09:00 03/20/17 09:24 (LaMICtal) 50 mg BID PO 03/19/17 13:00 03/20/17 09:24 (Singulair) 10 mg HS PO 03/19/17 21:00 03/19/17 21:16 (Deltasone) 10 mg DAILY PO 03/20/17 09:00 03/20/17 09:25 (Artane) 2 mg BID PO 03/19/17 13:00 03/20/17 09:24 (Ecotrin Ec) 81 mg DAILY PO 03/20/17 09:00 03/20/17 09:24 (Oscal) 500 mg DAILY PO 03/20/17 09:00 03/20/17 09:24 (PROzac) 40 mg DAILY PO 03/19/17 13:15 03/20/17 09:25 (SEROquel) 50 mg HS PO 03/19/17 21:00 03/19/17 21:16 (Lipitor) 20 mg HS PO 03/19/17 21:00 03/19/17 21:15 (Ventolin Hfa Inh) 3 puff Q4H PRN INH 03/19/17 13:35 Patient Own Medication PT OWN MED: PERFOROM... Q12H INH 03/19/17 21:00 Hold (SoluMEDROL INJ) 40 mg Q12HR IV PUSH 03/20/17 21:00 Family History Mother age 52 of heart disease. Brother age 49 of heart disease. Social History History of smoking 2 packs a day for many years which she subsequently reduced to half pack a day. Denied history of illicit drug use. Physical Exam Vital Signs Vital Signs Date Time Temp Pulse Resp B/P Pulse Ox O2 Delivery O2 Flow Rate FiO2 03/20/17 16:00 98.3 58 12 113/68 89 03/20/17 15:47 89 Non-Rebreather 100 03/20/17 15:20 95 50 03/20/17 12:28 70 16 70 03/20/17 12:00 98.9 72 14 98/57 38 03/20/17 11:52 92 Venturi Mask 6.00 50 03/20/17 08:00 98.5 80 16 116/68 94 03/20/17 00:00 98.7 86 18 121/65 91 03/19/17 20:00 96.0 72 18 119/72 91 Physical Exam HEENT/Neuro: Pallor present, no icterus, tongue moist, GOLD, Awake alert oriented 3, nonfocal grossly, moving all 4 extremities Neck: No JVD Chest/pulmonary: Air entry decreased bilaterally, scattered rhonchi, no wheezing , crepitus heard over chest wall laterally bilaterally due to subcutaneous air Cardiovascular: S1-S2 regular no gallop or murmur GI/abdomen: Soft, nontender, bowel sounds present. Dressing over surgical site on right. Extremities: Warm bilaterally, no edema Laboratory Laboratory Tests Test 03/20/17 03/20/17 13:10 13:47 Blood Gas Puncture Site RT RADIAL Blood Gas Patient Temperature 98.6 Blood Gas HCO3 29 mmol/L Blood Gas Base Excess 3.1 mmol/L Blood Gas Oxygen Saturation 89 % Arterial Blood pH 7.29 Arterial Blood Partial 62 mmHg Pressure CO2 Arterial Blood Partial 63 mmHg Pressure O2 Arterial Blood Oxygen Content 16.3 Vol % Arterial Blood 1.3 % Carboxyhemoglobin Arterial Blood Methemoglobin 0.8 % Blood Gas Hemoglobin 13.1 G/DL Oxygen Delivery Device Venti Mask Blood Gas Liter Flow 6 L/M Blood Gas Inspired Oxygen 50 % White Blood Count 8.5 TH/MM3 Red Blood Count 4.09 MIL/MM3 Hemoglobin 11.8 GM/DL Hematocrit 36.1 % Mean Corpuscular Volume 88.2 FL Mean Corpuscular Hemoglobin 28.8 PG Mean Corpuscular Hemoglobin 32.6 % Concent Red Cell Distribution Width 14.4 % Platelet Count 164 TH/MM3 Mean Platelet Volume 7.8 FL Neutrophils (%) (Auto) 92.0 % Lymphocytes (%) (Auto) 4.8 % Monocytes (%) (Auto) 2.9 % Eosinophils (%) (Auto) 0.1 % Basophils (%) (Auto) 0.2 % Neutrophils # (Auto) 7.9 TH/MM3 Lymphocytes # (Auto) 0.4 TH/MM3 Monocytes # (Auto) 0.2 TH/MM3 Eosinophils # (Auto) 0.0 TH/MM3 Basophils # (Auto) 0.0 TH/MM3 CBC Comment DIFF FINAL Differential Comment Sodium Level 135 MEQ/L Potassium Level 3.9 MEQ/L Chloride Level 98 MEQ/L Carbon Dioxide Level 31.0 MEQ/L Anion Gap 6 MEQ/L Blood Urea Nitrogen 8 MG/DL Creatinine 0.89 MG/DL Estimat Glomerular Filtration 66 ML/MIN Rate Random Glucose 119 MG/DL Calcium Level 8.1 MG/DL Total Creatine Kinase 485 U/L Creatine Kinase MB 1.7 NG/ML Creatine Kinase MB % 0.4 % Troponin I LESS THAN 0.02 NG/ML Result Diagram: 03/20/17 1347 03/20/17 1347 Imaging Last Impressions Chest X-Ray 03/20/17 0000 Signed Impressions: Service Date/Time: Monday, March 20, 2017 15:50 - CONCLUSION: 1. Bibasilar patchiness consistent with possible pneumonia. 2. Underlying interstitial fibrosis and emphysematous changes. 3. Diffuse subcutaneous emphysema bilaterally. 4. Small bilateral pleural effusions. Quentin Hawkins MD CT Angiography 03/20/17 0000 Signed Impressions: Service Date/Time: Monday, March 20, 2017 14:39 - CONCLUSION: 1. No pulmonary embolus identified. 2. Sizable areas of atelectasis in both lung bases with small bilateral effusions. 3. There is an area of honeycombing and fibrosis in the posterior aspect of the right upper lobe as well. 4. Extensive subcutaneous emphysema without evidence of pneumothorax. Izaiah Manley MD Assessment and Plan Assessment and Plan 56-year-old female with: Altered mental status/encephalopathy secondary to narcotics/ CO2 retention which is improved Acute respiratory failure COPD exacerbation Bilateral chest wall surgical emphysema probably originating from right lung with no evidence of pneumothorax right upper tract urothelial cell carcinoma status post robot-assisted right nephroureterectomy Parkinson's disease Anxiety/depression Plan: Neuro: Follow neuro status which improved following administration of Narcan 0.4 mg IV. Minimize use of sedation/narcotics. Cardiovascular: Watch for hypotension. Continue antihypertensives Pulmonary: Taken off BiPAP and placed on nonrebreather facemask in view of improvement in neurologic status following Narcan. Solu-Medrol 125 mg IV stat followed by 40 mg every 12 hourly IV, bronchodilators. Chest x-ray obtained which will be followed serially to see evolution of subcutaneous air and if increasing May require right sided chest tube. GI/liver: Advance by mouth diet if respiratory status permits. Renal/: status post robot-assisted right nephroureterectomy, follow up by urology. Heme: Follow CBC ID: No antibiotics at this time. Watch for fever/leukocytosis. Endocrine: SSI for glycemic control as needed. Prophylaxis: PPI/SCDs. Start subcutaneous heparin/Lovenox when okay with urology. Condition critical at the time of my evaluation due to encephalopathy with CO2 retention and possible need for intubation. Time spent on critical care excluding procedures 60 minutes. Ciaran Mcfarland MD March 20, 2017 19:55
[2017-03-20] MEDS: ATORVASTATIN 20 MG TAB PO SCH (20:28)
[2017-03-20] MEDS: QUEtiapine FUMARATE 25 MG TAB PO SCH (20:29)
[2017-03-20] MEDS: MONTELUKAST SODIUM 10 MG TAB PO SCH (20:29)
[2017-03-20] MEDS: methylPREDNISolone SOD SUCC 40 MG/1 ML VIAL IV PUSH SCH (20:30)
[2017-03-20 21:53] LABS: BLOOD GAS BASE EXCESS 1.8 mmol/L (-2-2); BLOOD GAS CARBOXYHEMOGLOBIN 0.7 % (0-4); BLOOD GAS HCO3 27 mmol/L (22-26); BLOOD GAS METHEMOGLOBIN 0.9 % (0-2); BLOOD GAS O2 HGB SATURATION 98 % (90-100); BLOOD GAS OXYGEN CONTENT 17.8 Vol % (12.0-20.0); BLOOD GAS PCO2 53 mmHg (38-42); BLOOD GAS PO2 203 mmHg (61-120); BLOOD GAS TOTAL HGB 12.7 G/DL (12.0-16.0); CRITICAL VALUE YES; DRAW SITE RT RADIAL; LITER FLOW 15 L/M; NUMBER OF ARTERIAL PUNCTURES 1; OXYGEN DEVICE NRB MASK; STAT NO; TEMP CORR TO 98.6; ULNAR PULSE PRESENT
[2017-03-21] VITALS (15 sets, daily range): BP systolic 117–157; BP diastolic 67–89; PULSE 65–77; RESP 12–25; TEMP 97–98.5; O2SAT 90–97
[2017-03-21] MEDS: RESP: ALBUTEROL 2.5 MG/IPRATROPIUM 0.5 MG NEB (SCH) NEB ×6 (04:12→23:48)
[2017-03-21 04:32] LABS: AUTOMATED NEUTROPHIL # 4.3 TH/MM3 (1.8-7.7); BASOPHIL % 0.1 % (0.0-2.0); HEMATOCRIT 36.4 % (35.0-46.0); HEMO FLAGS DIFF FINAL; LYMPH % 7.1 % (9.0-44.0); LYMPHOCYTE # 0.3 TH/MM3 (1.0-4.8); MEAN CELL VOLUME 87.6 FL (80.0-100.0); MEAN CORPUSCULAR HEMOGLOBIN 28.9 PG (27.0-34.0); MEAN CORPUSCULAR HGB CONC 32.9 % (32.0-36.0); MONO % 1.3 % (0.0-8.0); NEUT % 91.5 % (16.0-70.0); PLATELET COUNT 163 TH/MM3 (150-450); RED BLOOD COUNT 4.15 MIL/MM3 (4.00-5.30); RED CELL DISTRIBUTION WIDTH 14.5 % (11.6-17.2); WHITE BLOOD COUNT 4.8 TH/MM3 (4.0-11.0)
[2017-03-21 04:50] LABS: ANION GAP 8 MEQ/L (5-15); AST (GOT) 26 U/L (15-37); BICARBONATE 28.6 MEQ/L (21.0-32.0); BLOOD UREA NITROGEN 12 MG/DL (7-18); CHLORIDE 99 MEQ/L (98-107); GLOMERULAR FILTRATION RATE 59 ML/MIN (>89); POTASSIUM 3.8 MEQ/L (3.5-5.1); SODIUM (NA) 136 MEQ/L (136-145)
[2017-03-21 04:53] LABS: ALKALINE PHOSPHATASE 80 U/L (45-117); ALT (GPT) 22 U/L (10-53); TOTAL BILIRUBIN ADULT 0.3 MG/DL (0.2-1.0)
--- NOTE | 2017-03-21 05:08 | RADRPT ---
EXAM DATE/TIME: 03/21/2017 04:15 [place] COMPARISON: CHEST SINGLE AP, March 20, 2017, 15:50. INDICATIONS : Respiratory failure. MEDICAL HISTORY : Cardiovascular disease. Stroke. Renal cancer. SURGICAL HISTORY : None. ENCOUNTER: Subsequent ACUITY: 2 days PAIN SCORE: Non-responsive. LOCATION: Bilateral chest FINDINGS: The cardiac silhouette is normal in transverse diameter. There is left lower lobe atelectasis versus pneumonia. Bilateral subcutaneous emphysema is presentThere is no evidence of pneumothorax. CONCLUSION: 1. Increasing left lower lobe atelectasis. 2. There is no evidence of pneumothorax. Domingo Diez MD on March 21, 2017 at 5:05 Board Certified Radiologist. This report was verified electronically.
[2017-03-21] MEDS: ACETAMINOPHEN 1000 MG/100 ML VIAL IV SCH ×5 (06:15→22:47)
[2017-03-21] MEDS: CLINDAMYCIN INJ 900 MG in SODIUM CHLORIDE 0.9% INJ 100 ML IV SCH ×3 (06:15→22:43)
--- NOTE | 2017-03-21 08:22 | HHI.PR ---
Subjective Patient symptoms today Much more coherent this morning. almost back to her normal self. Denies CP/SOB/F /C. Has an appetite. Denies flatus. Objective Vital Signs Vital Signs Date Time Temp Pulse Resp B/P Pulse Ox O2 Delivery O2 Flow Rate FiO2 03/21/17 06:00 77 03/21/17 05:00 96 Nasal Cannula 3.00 03/21/17 04:12 96 Venturi Mask 40 03/21/17 04:00 73 03/21/17 04:00 97.0 73 25 126/68 94 03/21/17 04:00 95 Nasal Cannula 3.00 03/21/17 02:00 65 03/21/17 00:58 10 03/21/17 00:04 97 Venturi Mask 40 03/21/17 00:00 68 03/21/17 00:00 98.5 68 12 126/69 97 03/20/17 23:48 97 Venturi Mask 50 03/20/17 23:11 97 Venturi Mask 6.00 50 03/20/17 22:00 65 03/20/17 21:50 97 Venturi Mask 50 03/20/17 21:50 99 Venturi Mask 6.00 50 03/20/17 21:06 99 Non-Rebreather 15.00 03/20/17 20:00 63 03/20/17 20:00 98.5 62 30 127/69 99 03/20/17 19:00 100 Non-Rebreather 03/20/17 16:00 98.3 58 12 113/68 89 03/20/17 15:47 89 Non-Rebreather 100 03/20/17 15:20 95 50 03/20/17 12:28 70 16 70 03/20/17 12:00 98.9 72 14 98/57 38 03/20/17 11:52 92 Venturi Mask 6.00 50 Intake & Output 03/21/17 03/21/17 07:00 19:00 Intake Total 2629 ml Output Total 1870 ml Balance 759 ml Intake Oral 240 ml IV Total 2389 ml Output Urine Total 1750 ml Drainage Total 120 ml # Bowel Movements 0 Result Diagram: 03/21/17 0344 03/21/17 0344 Imaging Last 24 hours Impressions Chest X-Ray 03/21/17 0600 Signed Impressions: Service Date/Time: March 04:15 - CONCLUSION: 1. Increasing left lower lobe atelectasis. 2. There is no evidence of pneumothorax. Domingo Diez MD Objective Remarks NAD. A/O x 3 CTAB RRR abd soft, distended, appropriately tender. Iinc c/d/i. No peritoneal signs. [place] clear, yellow urine Ext NT. No c/c/e. EPC cuffs on. Medications and IVs Current Medications Medications (Trade) Dose Ordered Sig/Breann Route Start Time Stop Time Status Last Admin (Colace) 100 mg BID PO 03/18/17 21:00 03/20/17 20:28 Acetaminophen 1000 mg 1,000 mg Q6H IV 03/18/17 12:00 03/21/17 06:15 (Cleocin Inj/NS Inj) 106 ml @ 212 mls/hr Q8H IV 03/18/17 14:00 03/21/17 06:15 (Zofran Inj) 4 mg Q6HR PRN IV PUSH 03/18/17 12:15 03/20/17 09:45 Pantoprazole Sodium 40 mg 40 mg Q24H IV PUSH 03/18/17 13:00 03/20/17 13:12 (NS 1000 ml Inj) 1,000 ml @ 100 mls/hr Q10H IV 03/18/17 12:15 03/21/17 00:00 (Benadryl Inj) 50 mg Q6H PRN IV 03/19/17 12:00 03/19/17 12:04 (Xanax) 1 mg TID PO 03/19/17 13:00 03/20/17 09:25 (Norvasc) 10 mg DAILY PO 03/20/17 09:00 03/20/17 09:24 (Tenormin) 50 mg DAILY PO 03/20/17 09:00 03/20/17 09:24 (LaMICtal) 50 mg BID PO 03/19/17 13:00 03/20/17 20:29 (Singulair) 10 mg HS PO 03/19/17 21:00 03/20/17 20:29 (Deltasone) 10 mg DAILY PO 03/20/17 09:00 03/20/17 09:25 (Artane) 2 mg BID PO 03/19/17 13:00 03/20/17 20:29 (Ecotrin Ec) 81 mg DAILY PO 03/20/17 09:00 03/20/17 09:24 (Oscal) 500 mg DAILY PO 03/20/17 09:00 03/20/17 09:24 (PROzac) 40 mg DAILY PO 03/19/17 13:15 03/20/17 09:25 (SEROquel) 50 mg HS PO 03/19/17 21:00 03/20/17 20:29 (Lipitor) 20 mg HS PO 03/19/17 21:00 03/20/17 20:28 (Ventolin Hfa Inh) 3 puff Q4H PRN INH 03/19/17 13:35 Patient Own Medication PT OWN MED: PERFOROM... Q12H INH 03/19/17 21:00 Hold (SoluMEDROL INJ) 40 mg Q12HR IV PUSH 03/20/17 21:00 03/20/17 20:30 Assessment and Plan Assessment and Plan POD #3 s/p Right Robotic Nephroureterectomy -CTA Chest negative for PE -Limit narcotics. Changed her Xanax to prn. -Good renal function -Advance diet. -Lovenox 40 mg daily -Consult PT/OT -Appreciate Marketing Systems Manager input. -OK to floor later today if ok with other services. -Discussed pathology with her. Augustin Villagomez MD March 21, 2017 08:22
[2017-03-21] MEDS ORDERED: ALPRAZolam 1 MG TAB PO PRN (08:30)
[2017-03-21] MEDS: methylPREDNISolone SOD SUCC 40 MG/1 ML VIAL IV PUSH SCH ×2 (08:49→22:45)
[2017-03-21] MEDS: FLUoxetine HCL 20 MG CAP PO SCH (08:50)
[2017-03-21] MEDS: ENOXAPARIN SODIUM 40 MG/0.4 ML SYRINGE SQ SCH (08:50)
[2017-03-21] MEDS: DOCUSATE SODIUM 100 MG CAP PO SCH ×2 (08:50→22:47)
[2017-03-21] MEDS: predniSONE 10 MG TAB PO SCH (08:51)
[2017-03-21] MEDS: TRIHEXYPHENIDYL HCL 2 MG TAB PO SCH ×2 (08:51→22:41)
[2017-03-21] MEDS: CALCIUM CARBONATE 1.25 GM (CA 500 MG) TAB PO SCH (08:51)
[2017-03-21] MEDS: ASPIRIN EC 81 MG TABEC PO SCH (08:51)
[2017-03-21] MEDS: lamoTRIgine 25 MG TAB PO SCH ×2 (08:51→22:41)
[2017-03-21] MEDS: ATENOLOL 50 MG TAB PO SCH (08:51)
--- NOTE | 2017-03-21 09:03 | HHI.CCPN ---
Subjective Remarks/Hospital Course 56-year-old female with a medical history significant for significant COPD, right upper tract urothelial cell carcinoma who underwent robot-assisted right nephroureterectomy with bladder cuff resection under general anesthesia on [address] Villagomez, tolerated procedure well was subsequently extubated and transferred to the floor. She has been on nasal cannula. Today patient became progressively more lethargic. She had been receiving morphine for pain control at her surgical site. She also dropped her O2 sats so a CT pulmonary angiogram was ordered and patient was transferred to [facility] with the critical care consult requested for encephalopathy/respiratory failure. Patient was placed on BiPAP following arrival to the ICU as an ABG reflected acute respiratory acidosis. I evaluated the patient shortly following arrival. I ordered Narcan while I was in transit which was administered just prior to my arrival and with immediate improvement in her neurologic status. When I evaluated the patient she was awake and alert following commands moving all 4 extremities. She was complaining of significant thirst. BiPAP was he can often she was placed on a nonrebreather facemask with that she was maintaining her O2 sats. CTA chest was negative for pulmonary embolism however revealed significant emphysematous changes with blebs and extensive subcutaneous air extending from right to left side across anterior chest with more extensive surgical emphysema on the right side with no evidence of pneumothorax. Patient denied any chest pain or lightheadedness. Denied any chills. She did have some pain over her surgical site. She has been a long-standing smoker. History was obtained by reviewing records and discussion with nursing staff. 05/04: Breathing comfortably this morning. Alert, conversant without dyspnea. Objective Vital Signs Date Time Temp Pulse Resp B/P Pulse Ox O2 Delivery O2 Flow Rate FiO2 03/21/17 08:54 94 Nasal Cannula 3.00 03/21/17 08:00 74 03/21/17 04:12 40 03/21/17 04:00 97.0 25 126/68 Intake and Output 03/20/17 03/20/17 03/21/17 08:00 16:00 00:00 Intake Total 1000 ml 0 ml 1862 ml Output Total 850 ml 20 ml 1360 ml Balance 150 ml -20 ml 502 ml Result Diagram: 03/21/17 0344 03/21/17 0344 Other Results Laboratory Tests Test 03/20/17 03/20/17 13:10 21:40 Blood Gas Puncture Site RT RADIAL RT RADIAL Blood Gas Patient Temperature 98.6 98.6 Blood Gas HCO3 29 mmol/L 27 mmol/L (22-26) (22-26) Blood Gas Base Excess 3.1 mmol/L 1.8 mmol/L (-2-2) (-2-2) Blood Gas Oxygen Saturation 89 % (90-100) 98 % (90-100) Arterial Blood pH 7.29 7.33 (7.380-7.420) (7.380-7.420) Arterial Blood Partial 62 mmHg (38-42) 53 mmHg (38-42) Pressure CO2 Arterial Blood Partial 63 mmHg 203 mmHg Pressure O2 (61-120) (61-120) Arterial Blood Oxygen Content 16.3 Vol % 17.8 Vol % (12.0-20.0) (12.0-20.0) Arterial Blood 1.3 % (0-4) 0.7 % (0-4) Carboxyhemoglobin Arterial Blood Methemoglobin 0.8 % (0-2) 0.9 % (0-2) Blood Gas Hemoglobin 13.1 G/DL 12.7 G/DL (12.0-16.0) (12.0-16.0) Oxygen Delivery Device Venti Mask NRB MASK Blood Gas Liter Flow 6 L/M 15 L/M Blood Gas Inspired Oxygen 50 % Imaging Last Impressions Chest X-Ray 03/20/17 0000 Signed Impressions: Service Date/Time: Monday, March 20, 2017 15:50 - CONCLUSION: 1. Bibasilar patchiness consistent with possible pneumonia. 2. Underlying interstitial fibrosis and emphysematous changes. 3. Diffuse subcutaneous emphysema bilaterally. 4. Small bilateral pleural effusions. Quentin Hawkins MD CT Angiography 03/20/17 0000 Signed Impressions: Service Date/Time: Monday, March 20, 2017 14:39 - CONCLUSION: 1. No pulmonary embolus identified. 2. Sizable areas of atelectasis in both lung bases with small bilateral effusions. 3. There is an area of honeycombing and fibrosis in the posterior aspect of the right upper lobe as well. 4. Extensive subcutaneous emphysema without evidence of pneumothorax. Izaiah Manley MD Objective Remarks Neuro: Pallor present, no icterus, tongue moist, GOLD, Awake alert oriented 3 , nonfocal grossly, moving all 4 extremities Neck: No JVD, airway widely patent. Chest/pulmonary: Air entry improved bilaterally, no wheezing, crepitus heard over chest wall laterally bilaterally due to subcutaneous air Cardiovascular: S1-S2 regular no gallop or murmur GI/abdomen: Soft, nontender, bowel sounds present. Dressing over surgical site on right. Extremities: Warm bilaterally, no edema A/P Assessment and Plan Assessment: Altered mental status/encephalopathy secondary to narcotics/ CO2 retention which is improved Acute respiratory failure COPD exacerbation Bilateral chest wall surgical emphysema probably originating from right lung with no evidence of pneumothorax right upper tract urothelial cell carcinoma status post robot-assisted right nephroureterectomy Parkinson's disease Anxiety/depression Plan: Neuro: Minimize use of sedation/narcotics. Cardiovascular: Watch for hypotension. Continue antihypertensives Pulmonary: NC O2 Solu-Medrol 40 mg every 12 hourly IV, bronchodilators. GI/liver: Advance by mouth diet if respiratory status permits. Renal/: status post robot-assisted right nephroureterectomy, follow up by urology. Heme: Follow CBC ID: No antibiotics at this time. Watch for fever/leukocytosis. Endocrine: SSI for glycemic control as needed. Prophylaxis: PPI/SCDs. Start subcutaneous heparin/Lovenox when okay with urology. Overall impression: I suspect subcutaneous air is related to laparoscopic procedure, not pneumothorax. Event yesterday appears to have been initiated by analgesic sedation. Bronchospasm has resolved. Donald Arellano MD March 21, 2017 09:03
[2017-03-21] MEDS: ALPRAZolam 1 MG TAB PO PRN (12:44)
[2017-03-21] MEDS: PANTOPRAZOLE SODIUM 40 MG VIAL IV PUSH SCH (13:00)
[2017-03-21] MEDS: SODIUM CHLOR 0.9% 1000 ML INJ 1,000 ML IV SCH ×3 (18:18→22:46)
--- NOTE | 2017-03-21 18:20 | EKG ---
Date Performed: 03/20/2017 Time Performed: 13:50:25 PTAGE: 56 years EKG: Sinus rhythm NORMAL ECG Compared to prior tracing no significant change. PREVIOUS TRACING : 03/18/2017 06.28 DOCTOR: Domingo Larson Interpretating Date/Time 03/21/2017 18:19:40
[2017-03-21] MEDS: QUEtiapine FUMARATE 25 MG TAB PO SCH (22:47)
[2017-03-21] MEDS: ATORVASTATIN 20 MG TAB PO SCH (22:48)
[2017-03-21] MEDS: MONTELUKAST SODIUM 10 MG TAB PO SCH (22:48)
[2017-03-22] VITALS (7 sets, daily range): BP systolic 124–141; BP diastolic 70–85; PULSE 65–77; RESP 17–18; TEMP 97–98; O2SAT 91–95
[2017-03-22] MEDS: RESP: ALBUTEROL 2.5 MG/IPRATROPIUM 0.5 MG NEB (SCH) NEB ×6 (03:21→23:39)
[2017-03-22] MEDS: CLINDAMYCIN INJ 900 MG in SODIUM CHLORIDE 0.9% INJ 100 ML IV SCH (05:26)
[2017-03-22] MEDS: SODIUM CHLOR 0.9% 1000 ML INJ 1,000 ML IV SCH (05:26)
[2017-03-22] MEDS: ACETAMINOPHEN 1000 MG/100 ML VIAL IV SCH ×3 (06:00→18:00)
--- NOTE | 2017-03-22 08:00 | HHI.PR ---
Subjective Remarks Pt rather anxious this morning. She had a BM this morning Pain is controlled currently Afebrile BP is stable. Pt is on 3L of supplemental O2 currently. She does not use any supplemental O2 at home. Objective Vitals Vital Signs Date Time Temp Pulse Resp B/P Pulse Ox O2 Delivery O2 Flow Rate FiO2 03/22/17 00:00 97.8 65 18 130/70 94 03/21/17 20:00 Nasal Cannula 3.00 03/21/17 20:00 98.4 67 20 136/72 91 03/21/17 19:45 90 Nasal Cannula 3.00 03/21/17 18:00 72 03/21/17 16:00 76 03/21/17 16:00 98.5 66 18 157/89 90 03/21/17 14:00 76 03/21/17 12:00 98.2 76 21 130/68 91 03/21/17 12:00 76 03/21/17 10:00 75 03/21/17 08:54 94 Nasal Cannula 3.00 03/21/17 08:00 97.8 76 25 117/67 95 03/21/17 08:00 74 03/21/17 03/21/17 03/22/17 15:00 23:00 07:00 Intake Total 990 ml 240 ml 240 ml Output Total 1280 ml 2175 ml 1400 ml Balance -290 ml -1935 ml -1160 ml Intake Oral 240 ml 240 ml IV Total 990 ml Output Urine Total 1200 ml 2175 ml 1400 ml Drainage Total 80 ml # Bowel Movements 0 0 0 Result Diagram: 03/21/17 0344 03/21/17 0344 Other Results Laboratory Tests Test 03/20/17 03/20/17 03/20/17 03/21/17 13:10 13:47 21:40 03:44 Blood Gas Puncture Site RT RADIAL RT RADIAL Blood Gas Patient Temperature 98.6 98.6 Blood Gas HCO3 29 mmol/L 27 mmol/L Blood Gas Base Excess 3.1 mmol/L 1.8 mmol/L Blood Gas Oxygen Saturation 89 % 98 % Arterial Blood pH 7.29 7.33 Arterial Blood Partial 62 mmHg 53 mmHg Pressure CO2 Arterial Blood Partial 63 mmHg 203 mmHg Pressure O2 Arterial Blood Oxygen Content 16.3 Vol % 17.8 Vol % Arterial Blood 1.3 % 0.7 % Carboxyhemoglobin Arterial Blood Methemoglobin 0.8 % 0.9 % Blood Gas Hemoglobin 13.1 G/DL 12.7 G/DL Oxygen Delivery Device Venti Mask NRB MASK Blood Gas Liter Flow 6 L/M 15 L/M Blood Gas Inspired Oxygen 50 % White Blood Count 8.5 TH/MM3 4.8 TH/MM3 Red Blood Count 4.09 MIL/MM3 4.15 MIL/MM3 Hemoglobin 11.8 GM/DL 12.0 GM/DL Hematocrit 36.1 % 36.4 % Mean Corpuscular Volume 88.2 FL 87.6 FL Mean Corpuscular Hemoglobin 28.8 PG 28.9 PG Mean Corpuscular Hemoglobin 32.6 % 32.9 % Concent Red Cell Distribution Width 14.4 % 14.5 % Platelet Count 164 TH/MM3 163 TH/MM3 Mean Platelet Volume 7.8 FL 8.0 FL Neutrophils (%) (Auto) 92.0 % 91.5 % Lymphocytes (%) (Auto) 4.8 % 7.1 % Monocytes (%) (Auto) 2.9 % 1.3 % Eosinophils (%) (Auto) 0.1 % 0.0 % Basophils (%) (Auto) 0.2 % 0.1 % Neutrophils # (Auto) 7.9 TH/MM3 4.3 TH/MM3 Lymphocytes # (Auto) 0.4 TH/MM3 0.3 TH/MM3 Monocytes # (Auto) 0.2 TH/MM3 0.1 TH/MM3 Eosinophils # (Auto) 0.0 TH/MM3 0.0 TH/MM3 Basophils # (Auto) 0.0 TH/MM3 0.0 TH/MM3 CBC Comment DIFF FINAL DIFF FINAL Differential Comment Sodium Level 135 MEQ/L 136 MEQ/L Potassium Level 3.9 MEQ/L 3.8 MEQ/L Chloride Level 98 MEQ/L 99 MEQ/L Carbon Dioxide Level 31.0 MEQ/L 28.6 MEQ/L Anion Gap 6 MEQ/L 8 MEQ/L Blood Urea Nitrogen 8 MG/DL 12 MG/DL Creatinine 0.89 MG/DL 0.97 MG/DL Estimat Glomerular Filtration 66 ML/MIN 59 ML/MIN Rate Random Glucose 119 MG/DL 151 MG/DL Calcium Level 8.1 MG/DL 8.6 MG/DL Total Creatine Kinase 485 U/L Creatine Kinase MB 1.7 NG/ML Creatine Kinase MB % 0.4 % Troponin I LESS THAN 0.02 NG/ML Total Bilirubin 0.3 MG/DL Aspartate Amino Transf 26 U/L (AST/SGOT) Alanine Aminotransferase 22 U/L (ALT/SGPT) Alkaline Phosphatase 80 U/L Total Protein 6.2 GM/DL Albumin 2.6 GM/DL Imaging Last Impressions Chest X-Ray 03/21/17 0600 Signed Impressions: Service Date/Time: March 04:15 - CONCLUSION: 1. Increasing left lower lobe atelectasis. 2. There is no evidence of pneumothorax. Domingo Diez MD CT Angiography 03/20/17 0000 Signed Impressions: Service Date/Time: Monday, March 20, 2017 14:39 - CONCLUSION: 1. No pulmonary embolus identified. 2. Sizable areas of atelectasis in both lung bases with small bilateral effusions. 3. There is an area of honeycombing and fibrosis in the posterior aspect of the right upper lobe as well. 4. Extensive subcutaneous emphysema without evidence of pneumothorax. Izaiah Manley MD Objective Remarks General: NAD, AAOx3 Chest: Poor air movement bilaterally Cardiac: Regular Abd: +BS, soft nondistended, mild tenderness throughout. incision is c/d/i, drain in place with serosanguineous drainage noted. Srinivasan cath in place with yellow urine noted. Ext: No edema A/P Problem List: (1) Urothelial carcinoma of kidney Status: Acute Plan: - Pt with right upper tract urothelial cell carcinoma who underwent robot- assisted right nephroureterectomy with bladder cuff resection on 03/18/[address] Villagomez. - Pt initially did well post-operatively but on 03/20 she became progressively more lethargic and dropped her O2 sats. - Pt was transferred to [facility] under the care of the intensivists and patient was placed on BiPAP. ABG reflected acute respiratory acidosis. She was given Narcan with immediate improvement in her neurologic status. She was weaned off BiPAP to a nonrebreather face mask and then to NC, currently at 3L and has been maintaining her O2 sats. - CTA chest was negative for pulmonary embolism however revealed significant emphysematous changes with blebs and extensive subcutaneous air extending from right to left side across anterior chest with more extensive surgical emphysema on the right side with no evidence of pneumothorax. - She has been a long-standing smoker. - Pts pathology from her surgery noted low grade papillary urothelial carcinoma limited to the superior renal calyx, with clear margins. - Renal function is stable - Pt tolerating her diet, - PT/OT - DVt prophylaxis with Lovenox 40 mg daily (2) Acute respiratory failure Status: Acute Plan: - Improved. - See above. (3) COPD (chronic obstructive pulmonary disease) Status: Chronic Plan: - Pt with known severe COPD, pt follows with Dr. Parmar as an outpt. - Pt reportedly quit smoking 1 month ago but smoked for 46 years - She normally is on Formoterol/Budesonide neb Q12H, Albuterol neb QID PRN, Ventolin QID PRN and Atrovent QID PRN - Pt is currently on Duonebs Q4H and PRN, Solu-Medrol 40mg IV Q12H, Singulair 10mg HS, and Ventolin PRN - Add on Budesonide nebulizer Q12H - May need to increase steroid frequency - Try to slowly wean down/off supplemental O2 (4) Anxiety Status: Chronic Plan: - Cont. Xanax 0.5 TID PRN - Cont. Prozac (5) Parkinson disease Status: Chronic Plan: - Home meds continued. Assessment and Plan Patient examined. Assessment and plan formulated with Lexus Wood PA-C. I agree with the above. pt very eager for d/c but still on oxygen. plus she has srinivasan and lore. walk test. wean steroids check with urology regarding d/c plans with lore/zarina Problem Qualifiers (1) Urothelial carcinoma of kidney: Qualified Code: C64.1 - Urothelial carcinoma of kidney, right Lexus Wood March 22, 2017 08:00 Chirag Bustamante MD March 22, 2017 14:53
[2017-03-22] MEDS: ATENOLOL 50 MG TAB PO SCH (09:37)
[2017-03-22] MEDS: DOCUSATE SODIUM 100 MG CAP PO SCH ×2 (09:37→20:53)
[2017-03-22] MEDS: FLUoxetine HCL 20 MG CAP PO SCH (09:37)
[2017-03-22] MEDS: ASPIRIN EC 81 MG TABEC PO SCH (09:37)
[2017-03-22] MEDS: methylPREDNISolone SOD SUCC 40 MG/1 ML VIAL IV PUSH SCH ×2 (09:38→20:53)
[2017-03-22] MEDS: ALPRAZolam 1 MG TAB PO PRN (09:38)
[2017-03-22] MEDS: CALCIUM CARBONATE 1.25 GM (CA 500 MG) TAB PO SCH (09:38)
[2017-03-22] MEDS: TRIHEXYPHENIDYL HCL 2 MG TAB PO SCH ×2 (09:38→20:54)
[2017-03-22] MEDS: lamoTRIgine 25 MG TAB PO SCH ×2 (09:38→20:53)
[2017-03-22] MEDS: ENOXAPARIN SODIUM 40 MG/0.4 ML SYRINGE SQ SCH (09:39)
[2017-03-22] MEDS: PANTOPRAZOLE SODIUM 40 MG VIAL IV PUSH SCH (13:20)
--- NOTE | 2017-03-22 17:04 | HHI.PR ---
Subjective Patient symptoms today feels better today. Tolerating regular diet. Had BM. Passing flatus. Denies nausea, chest pain. Breathing slightly improved but on oxygen. Objective Vital Signs Vital Signs Date Time Temp Pulse Resp B/P Pulse Ox O2 Delivery O2 Flow Rate FiO2 03/22/17 16:00 98.0 69 18 124/85 92 03/22/17 12:00 97.3 66 17 141/72 92 03/22/17 08:50 92 Nasal Cannula 3.00 03/22/17 08:04 91 Nasal Cannula 3.00 03/22/17 08:00 97.3 69 17 135/74 92 03/22/17 00:00 97.8 65 18 130/70 94 03/21/17 20:00 Nasal Cannula 3.00 03/21/17 20:00 98.4 67 20 136/72 91 03/21/17 19:45 90 Nasal Cannula 3.00 03/21/17 18:00 72 Intake & Output 03/22/17 03/22/17 07:00 19:00 Intake Total 480 ml 240 ml Output Total 3665 ml 1490 ml Balance -3185 ml -1250 ml Intake Oral 480 ml 240 ml Output Urine Total 3575 ml 1400 ml Drainage Total 90 ml 90 ml # Bowel Movements 0 2 Result Diagram: 03/21/17 0344 03/21/17 0344 Objective Remarks NAD. A/O x 3 CTAB RRR abd soft, distended, appropriately tender. Iinc c/d/i. No peritoneal signs. Grove clear, yellow urine Ext NT. No c/c/e. EPC cuffs on. Medications and IVs Current Medications Medications (Trade) Dose Ordered Sig/Breann Route Start Time Stop Time Status Last Admin (Colace) 100 mg BID PO 03/18/17 21:00 03/22/17 09:37 (Ofirmev Inj) 1,000 mg Q6H IV 03/18/17 12:00 03/21/17 11:50 (Zofran Inj) 4 mg Q6HR PRN IV PUSH 03/18/17 12:15 03/20/17 09:45 (Protonix Inj) 40 mg Q24H IV PUSH 03/18/17 13:00 03/22/17 13:20 (Benadryl Inj) 50 mg Q6H PRN IV 03/19/17 12:00 03/19/17 12:04 (Norvasc) 10 mg DAILY PO 03/20/17 09:00 03/22/17 09:38 (Tenormin) 50 mg DAILY PO 03/20/17 09:00 03/22/17 09:37 (LaMICtal) 50 mg BID PO 03/19/17 13:00 03/22/17 09:38 (Singulair) 10 mg HS PO 03/19/17 21:00 03/21/17 22:48 (Deltasone) 10 mg DAILY PO 03/20/17 09:00 Hold 03/21/17 08:51 (Artane) 2 mg BID PO 03/19/17 13:00 03/22/17 09:38 (Ecotrin Ec) 81 mg DAILY PO 03/20/17 09:00 03/22/17 09:37 (Oscal) 500 mg DAILY PO 03/20/17 09:00 03/22/17 09:38 (PROzac) 40 mg DAILY PO 03/19/17 13:15 03/22/17 09:37 (SEROquel) 50 mg HS PO 03/19/17 21:00 03/21/17 22:47 (Lipitor) 20 mg HS PO 03/19/17 21:00 03/21/17 22:48 (Ventolin Hfa Inh) 3 puff Q4H PRN INH 03/19/17 13:35 03/22/17 13:26 Patient Own Medication PT OWN MED: PERFOROM... Q12H INH 03/19/17 21:00 Hold (SoluMEDROL INJ) 40 mg Q12HR IV PUSH 03/20/17 21:00 03/22/17 09:38 (Lovenox Inj) 40 mg Q24H SQ 03/21/17 09:00 03/22/17 09:39 (Xanax) 0.5 mg TID PRN PO 03/21/17 09:15 03/22/17 09:38 Assessment and Plan Assessment and Plan POD #4 s/p Right Robotic Nephroureterectomy -Limit narcotics. -Good renal function -Regular diet. -Lovenox 40 mg daily. -LORETTA Creatinine pending -Consult PT/OT -Appreciate Medicine input. Wean O2. Likely need home O2. -Ambulate Augustin Villagomez MD March 22, 2017 17:04
[2017-03-22] MEDS: RESP: BUDESONIDE 0.5 MG/2 ML NEB NEB SCH (20:01)
[2017-03-22] MEDS: MONTELUKAST SODIUM 10 MG TAB PO SCH (20:53)
[2017-03-22] MEDS: QUEtiapine FUMARATE 25 MG TAB PO SCH (20:54)
[2017-03-22] MEDS: ATORVASTATIN 20 MG TAB PO SCH (20:54)
[2017-03-23] VITALS: BP 113/71; PULSE 78; RESP 18; TEMP 97.9; O2SAT 93
[2017-03-23] MEDS: RESP: ALBUTEROL 2.5 MG/IPRATROPIUM 0.5 MG NEB (SCH) NEB ×4 (03:21→16:42)
[2017-03-23] MEDS: ACETAMINOPHEN 1000 MG/100 ML VIAL IV SCH ×2 (06:00)
[2017-03-23 06:34] LABS: AUTOMATED NEUTROPHIL # 7.8 TH/MM3 (1.8-7.7); BASOPHIL % 0.1 % (0.0-2.0); EOSINOPHIL % 0.1 % (0.0-4.0); HEMATOCRIT 36.7 % (35.0-46.0); HEMO FLAGS DIFF FINAL; LYMPH % 4.8 % (9.0-44.0); LYMPHOCYTE # 0.4 TH/MM3 (1.0-4.8); MEAN CELL VOLUME 85.7 FL (80.0-100.0); MEAN CORPUSCULAR HEMOGLOBIN 29.6 PG (27.0-34.0); MEAN CORPUSCULAR HGB CONC 34.5 % (32.0-36.0); MONO % 3.4 % (0.0-8.0); NEUT % 91.6 % (16.0-70.0); PLATELET COUNT 230 TH/MM3 (150-450); RED BLOOD COUNT 4.28 MIL/MM3 (4.00-5.30); WHITE BLOOD COUNT 8.5 TH/MM3 (4.0-11.0)
[2017-03-23 06:42] LABS: BICARBONATE 32.4 MEQ/L (21.0-32.0); MAGNESIUM 2.1 MG/DL (1.5-2.5); POTASSIUM 3.2 MEQ/L (3.5-5.1)
--- NOTE | 2017-03-23 07:24 | HHI.PR ---
Subjective Patient symptoms today no acute issues overnight. Denies pain. Had BM. Passing Flatus. tolerating regular diet. Ambulating. Still on O2. Denies chest pain, fevers, nausea. Grove removed this morning. Objective Vital Signs Vital Signs Date Time Temp Pulse Resp B/P Pulse Ox O2 Delivery O2 Flow Rate FiO2 03/23/17 00:00 97.9 78 18 113/71 93 03/22/17 20:04 93 Nasal Cannula 3.00 03/22/17 20:00 95 Nasal Cannula 3.00 03/22/17 20:00 97.0 77 18 127/73 95 03/22/17 16:00 98.0 69 18 124/85 92 03/22/17 12:00 97.3 66 17 141/72 92 03/22/17 08:50 92 Nasal Cannula 3.00 03/22/17 08:04 91 Nasal Cannula 3.00 03/22/17 08:00 97.3 69 17 135/74 92 Intake & Output 03/23/17 03/23/17 07:00 19:00 Intake Total 360 ml Output Total 1205 ml 10 ml Balance -845 ml -10 ml Intake Oral 360 ml Output Urine Total 1175 ml Drainage Total 30 ml 10 ml Result Diagram: 03/23/17 0344 03/23/17 0344 Objective Remarks NAD. A/O x 3 non-labored breathing RRR abd soft, less distended, appropriately tender. Inc c/d/i. No peritoneal signs. LORETTA scant output. Ext NT. No c/c/e. EPC cuffs on. Medications and IVs Current Medications Medications (Trade) Dose Ordered Sig/Breann Route Start Time Stop Time Status Last Admin (Colace) 100 mg BID PO 03/18/17 21:00 03/22/17 20:53 (Ofirmev Inj) 1,000 mg Q6H IV 03/18/17 12:00 03/21/17 11:50 (Zofran Inj) 4 mg Q6HR PRN IV PUSH 03/18/17 12:15 03/20/17 09:45 (Protonix Inj) 40 mg Q24H IV PUSH 03/18/17 13:00 03/22/17 13:20 (Benadryl Inj) 50 mg Q6H PRN IV 03/19/17 12:00 03/19/17 12:04 (Norvasc) 10 mg DAILY PO 03/20/17 09:00 03/22/17 09:38 (Tenormin) 50 mg DAILY PO 03/20/17 09:00 03/22/17 09:37 (LaMICtal) 50 mg BID PO 03/19/17 13:00 03/22/17 20:53 (Singulair) 10 mg HS PO 03/19/17 21:00 03/22/17 20:53 (Deltasone) 10 mg DAILY PO 03/20/17 09:00 Hold 03/21/17 08:51 (Artane) 2 mg BID PO 03/19/17 13:00 03/22/17 20:54 (Ecotrin Ec) 81 mg DAILY PO 03/20/17 09:00 03/22/17 09:37 (Oscal) 500 mg DAILY PO 03/20/17 09:00 03/22/17 09:38 (PROzac) 40 mg DAILY PO 03/19/17 13:15 03/22/17 09:37 (SEROquel) 50 mg HS PO 03/19/17 21:00 03/22/17 20:54 (Lipitor) 20 mg HS PO 03/19/17 21:00 03/22/17 20:54 (Ventolin Hfa Inh) 3 puff Q4H PRN INH 03/19/17 13:35 03/22/17 13:26 Patient Own Medication PT OWN MED: PERFOROM... Q12H INH 03/19/17 21:00 Hold (SoluMEDROL INJ) 40 mg Q12HR IV PUSH 03/20/17 21:00 03/22/17 20:53 (Lovenox Inj) 40 mg Q24H SQ 03/21/17 09:00 03/22/17 09:39 (Xanax) 0.5 mg TID PRN PO 03/21/17 09:15 03/22/17 09:38 Assessment and Plan Assessment and Plan POD #5 s/p Right Robotic Nephroureterectomy -Limit narcotics. -Good renal function -Regular diet. -Lovenox 40 mg daily. -D/C LORETTA drain. -Ambulate, IS. -Appreciate Medicine input. Wean O2. Likely need home O2. -OK to d/c home from surgical standpoint. Will d/c home when ok with Medicine. Augustin Villagomez MD March 23, 2017 07:24
[2017-03-23] MEDS ORDERED: HYDR-3533 PO (07:27)
[2017-03-23] MEDS: RESP: BUDESONIDE 0.5 MG/2 ML NEB NEB SCH (07:34)
[2017-03-23 07:36] VITALS: O2SAT 91
[2017-03-23 08:00] VITALS: BP 154/84; PULSE 73; RESP 18; TEMP 98.8; O2SAT 91
[2017-03-23] MEDS ORDERED: ACETAMINOPHEN/HYDROcodone 325 MG/5 MG TAB PO PRN (08:00)
[2017-03-23] MEDS ORDERED: ACETAMINOPHEN 325 MG TAB PO PRN (08:00)
[2017-03-23] MEDS: methylPREDNISolone SOD SUCC 40 MG/1 ML VIAL IV PUSH SCH (08:28)
[2017-03-23] MEDS: FLUoxetine HCL 20 MG CAP PO SCH (08:29)
[2017-03-23] MEDS: ASPIRIN EC 81 MG TABEC PO SCH (08:29)
[2017-03-23] MEDS: ATENOLOL 50 MG TAB PO SCH (08:29)
[2017-03-23] MEDS: TRIHEXYPHENIDYL HCL 2 MG TAB PO SCH (08:29)
[2017-03-23] MEDS: CALCIUM CARBONATE 1.25 GM (CA 500 MG) TAB PO SCH (08:29)
[2017-03-23] MEDS: ENOXAPARIN SODIUM 40 MG/0.4 ML SYRINGE SQ SCH (08:29)
[2017-03-23] MEDS: DOCUSATE SODIUM 100 MG CAP PO SCH (08:29)
[2017-03-23] MEDS: lamoTRIgine 25 MG TAB PO SCH (08:29)
[2017-03-23] MEDS ORDERED: OXYGENTANK NAS.CANULA (08:57)
[2017-03-23] MEDS ORDERED: POTASSIUM CHLORIDE 20 MEQ CONTROLLED RELEASE TAB PO ONE (11:45)
[2017-03-23] MEDS: PANTOPRAZOLE SODIUM 40 MG VIAL IV PUSH SCH (11:56)
[2017-03-23 12:00] VITALS: BP 144/72; PULSE 64; RESP 20; TEMP 97.9; O2SAT 94
[2017-03-23] MEDS ORDERED: PRED10 PO (12:28)
--- NOTE | 2017-03-23 12:30 | HHI.PR ---
Subjective Remarks eager for d/c. lore and srinivasan out. failed walk test. Objective Vitals heart reg lung diminished itzel abd s/nt ext no edema Vital Signs Date Time Temp Pulse Resp B/P Pulse Ox O2 Delivery O2 Flow Rate FiO2 03/23/17 08:30 92 Nasal Cannula 3.00 03/23/17 08:00 98.8 73 18 154/84 91 03/23/17 07:36 91 Nasal Cannula 3.00 03/23/17 00:00 97.9 78 18 113/71 93 03/22/17 20:04 93 Nasal Cannula 3.00 03/22/17 20:00 95 Nasal Cannula 3.00 03/22/17 20:00 97.0 77 18 127/73 95 03/22/17 16:00 98.0 69 18 124/85 92 03/22/17 03/22/17 03/23/17 15:00 23:00 07:00 Intake Total 240 ml 120 ml 240 ml Output Total 1490 ml 320 ml 930 ml Balance -1250 ml -200 ml -690 ml Intake Oral 240 ml 120 ml 240 ml Output Urine Total 1400 ml 275 ml 900 ml Drainage Total 90 ml 45 ml 30 ml # Bowel Movements 2 Result Diagram: 03/23/17 0344 03/23/17 0344 Imaging Last Impressions Chest X-Ray 03/21/17 0600 Signed Impressions: Service Date/Time: March 04:15 - CONCLUSION: 1. Increasing left lower lobe atelectasis. 2. There is no evidence of pneumothorax. Domingo Diez MD CT Angiography 03/20/17 0000 Signed Impressions: Service Date/Time: Monday, March 20, 2017 14:39 - CONCLUSION: 1. No pulmonary embolus identified. 2. Sizable areas of atelectasis in both lung bases with small bilateral effusions. 3. There is an area of honeycombing and fibrosis in the posterior aspect of the right upper lobe as well. 4. Extensive subcutaneous emphysema without evidence of pneumothorax. Izaiah Manley MD A/P Problem List: (1) Urothelial carcinoma of kidney Status: Acute Plan: - Pt with right upper tract urothelial cell carcinoma who underwent robot- assisted right nephroureterectomy with bladder cuff resection on 03/18/[address] Villagomez. - Pt initially did well post-operatively but on 03/20 she became progressively more lethargic and dropped her O2 sats. - Pt was transferred to [facility] under the care of the intensivists and patient was placed on BiPAP. ABG reflected acute respiratory acidosis. She was given Narcan with immediate improvement in her neurologic status. She was weaned off BiPAP to a nonrebreather face mask and then to NC, currently at 3L and has been maintaining her O2 sats. - CTA chest was negative for pulmonary embolism however revealed significant emphysematous changes with blebs and extensive subcutaneous air extending from right to left side across anterior chest with more extensive surgical emphysema on the right side with no evidence of pneumothorax. - She has been a long-standing smoker. - Pts pathology from her surgery noted low grade papillary urothelial carcinoma limited to the superior renal calyx, with clear margins. - Renal function is stable - Pt tolerating her diet, - PT/OT - DVt prophylaxis with Lovenox 40 mg daily her lore and srinivasan out. cleared by urology. pt wants to go home. still on o2 for copd. failed walk test. eager for d/c. arrange home o2 and f/u pcp and her transport assistant to wean off. (2) Acute respiratory failure Status: Acute Plan: - Improved. - See above. (3) COPD (chronic obstructive pulmonary disease) Status: Chronic Plan: - Pt with known severe COPD, pt follows with Dr. Parmar as an outpt. - Pt reportedly quit smoking 1 month ago but smoked for 46 years - She normally is on Formoterol/Budesonide neb Q12H, Albuterol neb QID PRN, Ventolin QID PRN and Atrovent QID PRN - Pt is currently on Duonebs Q4H and PRN, Solu-Medrol 40mg IV Q12H, Singulair 10mg HS, and Ventolin PRN - Add on Budesonide nebulizer Q12H -see above (4) Anxiety Status: Chronic Plan: - Cont. Xanax 0.5 TID PRN - Cont. Prozac (5) Parkinson disease Status: Chronic Plan: - Home meds continued. Problem Qualifiers (1) Urothelial carcinoma of kidney: Qualified Code: C64.1 - Urothelial carcinoma of kidney, right Chirag Bustamante MD March 23, 2017 12:30
--- NOTE | 2017-03-23 12:31 | HHI.DCPOC ---
Discharge Care Plan Diagnosis: (1) COPD (chronic obstructive pulmonary disease) (2) Urothelial carcinoma of kidney (3) Acute respiratory failure (4) Anxiety (5) Parkinson disease Goals to Promote Your Health * To prevent worsening of your condition and complications * To maintain your health at the optimal level Directions to Meet Your Goals Take your medications as prescribed Follow your dietary instruction Follow activity as directed Keep your appointments as scheduled Take your immunizations and boosters as scheduled If your symptoms worsen call your PCP, if no PCP go to Urgent Care Center or Emergency Room Smoking is Dangerous to Your Health. Avoid second hand smoke Call the 24-hour hour crisis hotline for domestic abuse at Chirag Bustamante MD March 23, 2017 12:31
--- NOTE | 2017-03-23 15:00 | HHI.DS ---
Discharge Summary Admission Date March 18, 2017 at 05:26 Discharge Date: March 23, 2017 Admitting Diagnosis (1) Urothelial carcinoma of kidney Diagnosis: Principal (2) Acute respiratory failure Diagnosis: Principal (3) COPD (chronic obstructive pulmonary disease) Diagnosis: Principal (4) Anxiety Diagnosis: Secondary (5) Parkinson disease Diagnosis: Secondary CBC/BMP: 03/23/17 0344 03/23/17 0344 Significant Findings Laboratory Tests Test 03/20/17 03/21/17 03/23/17 21:40 03:44 03:44 Blood Gas HCO3 27 mmol/L (22-26) Arterial Blood pH 7.33 (7.380-7.420) Arterial Blood Partial 53 mmHg (38-42) Pressure CO2 Arterial Blood Partial 203 mmHg Pressure O2 (61-120) Neutrophils (%) (Auto) 91.5 % 91.6 % (16.0-70.0) (16.0-70.0) Lymphocytes (%) (Auto) 7.1 % 4.8 % (9.0-44.0) (9.0-44.0) Lymphocytes # (Auto) 0.3 TH/MM3 0.4 TH/MM3 (1.0-4.8) (1.0-4.8) Estimat Glomerular Filtration 59 ML/MIN (>89) 54 ML/MIN (>89) Rate Random Glucose 151 MG/DL 152 MG/DL (74-106) (74-106) Total Protein 6.2 GM/DL (6.4-8.2) Albumin 2.6 GM/DL (3.4-5.0) Neutrophils # (Auto) 7.8 TH/MM3 (1.8-7.7) Potassium Level 3.2 MEQ/L (3.5-5.1) Carbon Dioxide Level 32.4 MEQ/L (21.0-32.0) Creatinine 1.06 MG/DL (0.50-1.00) Hospital Course (1) Urothelial carcinoma of kidney - Pt with right upper tract urothelial cell carcinoma who underwent robot- assisted right nephroureterectomy with bladder cuff resection on 03/18/[address] Villagomez. - Pt initially did well post-operatively but on 03/20 she became progressively more lethargic and dropped her O2 sats. - Pt was transferred to [facility] under the care of the intensivists and patient was placed on BiPAP. ABG reflected acute respiratory acidosis. She was given Narcan with immediate improvement in her neurologic status. She was weaned off BiPAP to a nonrebreather face mask and then to NC, currently at 3L and has been maintaining her O2 sats. - CTA chest was negative for pulmonary embolism however revealed significant emphysematous changes with blebs and extensive subcutaneous air extending from right to left side across anterior chest with more extensive surgical emphysema on the right side with no evidence of pneumothorax. - She has been a long-standing smoker. - Pts pathology from her surgery noted low grade papillary urothelial carcinoma limited to the superior renal calyx, with clear margins. - Renal function is stable - Pt tolerating her diet, - PT/OT her lore and srinivasan out. cleared by urology. pt wants to go home. still on o2 for copd. failed walk test. eager for d/c. arrange home o2 and f/u pcp and her radiology teacher to wean off if possible. (2) Acute respiratory failure - See above. (3) COPD (chronic obstructive pulmonary disease) - Pt with known severe COPD, pt follows with Dr. Parmar as an outpt. - Pt reportedly quit smoking 1 month ago but smoked for 46 years - She normally is on Formoterol/Budesonide neb Q12H, Albuterol neb QID PRN, Ventolin QID PRN and Atrovent QID PRN - (4) Anxiety - Cont. Xanax 0.5 TID PRN - Cont. Prozac (5) Parkinson disease - Home meds continued. Pt Condition on Discharge: Stable Discharge Disposition: Discharge Home Discharge Instructions DIET: Follow Instructions for: As Tolerated, No Restrictions Activities you can perform: Regular-No Restrictions Follow up Referrals: PCP Follow-up - 1 Week with jennifer elliott Pulmonology - 10 Days with Maritza Parmar MD Urology - 1 Week with Augustin Villagomez MD New Medications: Hydrocodone-Acetaminophen (Lortab) 5-325 Mg Tab 1-2 TAB PO Q6H PRN PAIN #30 Ref 0 TAB Oxygen tank (Oxygen tank) 1 Ea Tank 2 LITER MALIK.CANULA CONTINUOUS Oxygen Concentrator Portable Gaseous 2 L/min via Nasal Cannula Continuous For 99 months HYPOXEMIA PREVENTION #2 CYLINDER Prednisone (Prednisone) 10 Mg Tab 10 MG PO DIRECTED 30mg po bid x 2 days, 20mg po bid x 3 days, 10mg po bid x 3 days then 10mg po daily copd Days 30 Ref 3 TAB Continued Medications: Albuterol 18 GM Inh (Ventolin Hfa 18 GM Inh) 90 Mcg/Act Aer 2-4 PUFF INH Q4H PRN SHORTNESS OF BREATH #1 Ref 0 INHALER Alprazolam (Alprazolam) 1 Mg Tab 1 MG PO TID ANXIETY Ref 0 TAB Amlodipine (Amlodipine) 10 Mg Tab 10 MG PO DAILY Blood Pressure Management #[address] Ref [address] (Aspirin 81) 81 Mg Tabdr 81 MG PO DAILY Ref 0 TAB Atenolol (Atenolol) 50 Mg Tab 50 MG PO DAILY Blood Pressure Management #30 Ref 0 TAB Calcium Carbonate (Calcium) 600 Mg Tab 1 TAB PO DAILY Fluoxetine HCl (Pmdd) (Fluoxetine HCl) 20 Mg Tab 40 MG PO DAILY Formoterol Neb (Perforomist Neb) 20 Mcg/2 Ml Neb 1 NEBULE INH Q12HR COPD #60 Ref 0 NEBULE Ipratropium-Albuterol Neb (Duoneb) 0.5-2.5 Mg/3 Ml Neb 1 NEBULE INH Q4HR NEB PRN SHORTNESS OF BREATH #120 Ref 0 NEBULE Lamotrigine (Lamotrigine) 100 Mg Tab 50 MG PO BID Control Seizures #60 Ref 0 TAB Montelukast (Montelukast) 10 Mg Tab 10 MG PO HS #30 Ref 0 TAB Pantoprazole (Pantoprazole) 40 Mg Tab 40 MG PO DAILY Reflux #30 Ref 0 TAB Quetiapine XR (Seroquel XR) 50 Mg Tab 50 MG PO HS #30 Ref 0 TAB Rosuvastatin (Rosuvastatin) 10 Mg Tab 10 MG PO HS Cholesterol Management Ref 0 TAB Trihexyphenidyl (Trihexyphenidyl) 2 Mg Tab 2 MG PO BID Parkinson Disease Mgmt #60 Ref 0 TAB Discontinued Medications: Doxycycline Hyclate (Doxycycline Hyclate) 100 Mg Tab 100 MG PO BID TAB Prednisone (Prednisone) 10 Mg Tab 10 MG PO DAILY Ref 0 TAB Chirag Bustamante MD March 23, 2017 15:00
[2017-03-23 16:00] VITALS: BP 134/74; PULSE 64; RESP 19; TEMP 98.8; O2SAT 93
[2017-03-23] MEDS: ALPRAZolam 1 MG TAB PO PRN (18:10)
== END 2017-03-23 18:35 | disposition home or self-care (01) | DRG 656 ==
LOC: HSDI 03-18 05:26 → N07B 03-18 16:53 → N03A 03-20 15:20 → N07A 03-21 19:06
PROVIDERS: ADMIT Urology; ATTEND Urology
PROC: 0TT64ZZ Resection of Right Ureter, Percutaneous Endoscopic Approach (ICD-10-PCS; 2017-03-18)
PROC: 8E0W4CZ Robotic Assisted Procedure of Trunk Region, Percutaneous Endoscopic Approach (ICD-10-PCS; 2017-03-18)
PROC: 0TT04ZZ Resection of Right Kidney, Percutaneous Endoscopic Approach (ICD-10-PCS; principal; 2017-03-18 07:43)
PROC: 5A09357 Assistance with Respiratory Ventilation, Less than 24 Consecutive Hours, Continuous Positive Airway Pressure (ICD-10-PCS; 2017-03-20)
DX: C65.1 Malignant neoplasm of right renal pelvis (principal); J96.00 Acute respiratory failure, unspecified whether with hypoxia or hypercapnia; G92 Toxic encephalopathy; T40.605A Adverse effect of unspecified narcotics, initial encounter; J44.1 Chronic obstructive pulmonary disease with (acute) exacerbation; G20 Parkinson's disease; F17.210 Nicotine dependence, cigarettes, uncomplicated; I10 Essential (primary) hypertension; E78.5 Hyperlipidemia, unspecified; F41.9 Anxiety disorder, unspecified; J43.9 Emphysema, unspecified; K21.9 Gastro-esophageal reflux disease without esophagitis
CPT/HCPCS: 36600; 71010; 71275; 80048; 80053; 82550; 82552; 82805; 83735; 84484; 85025; 85610; 86850; 86900; 86901; 86920; 88307; 93005; 94002; 94150; 94620; 94640; 94664; C9113; J0131; J1100; J1200; J1650; J2250; J2270; J2310; J2370; J2405; J2920; J2930; J3010; J7030; J7120; J7512; J7626; Q9967